=== PATIENT | male | born 1970 | race Caucasian/White ===

== ENCOUNTER 2023-02-17 08:14 | Inpatient (IN) ==
[2023-02-17] MEDS ORDERED: ASPIRIN CHEW 324 MG ONE (08:36)
[2023-02-17] MEDS ORDERED: NITROGLYCERIN SL 0.4 MG/TAB TAB ONE ×3 (08:37→13:08)
[2023-02-17] MEDS ORDERED: NITROGLYCERIN SL 0.4 MG/TAB TAB SL STA (08:39)
[2023-02-17] MEDS ORDERED: ASPIRIN CHEW 324 MG PO STA (08:39)
[2023-02-17] MEDS ORDERED: niCARdipine HCL INJ 2.5 MG/ML 10 ML AMP ONE (08:40)
[2023-02-17] MEDS ORDERED: fentaNYL citrate PF 100 MCG/2 ML VIAL ONE (08:40)
[2023-02-17] MEDS ORDERED: MIDAZOLAM HCL 1 MG/ML 2ML VIAL ONE ×2 (08:40→09:11)
[2023-02-17] MEDS ORDERED: HEPARIN (PORCINE) 1000 UNIT/ML 10 ML (CATH LAB USE ONLY) ONE (08:40)
[2023-02-17] MEDS ORDERED: NITROGLYCERIN/D5W 100MCG/ML 20ML SYR ONE (08:41)
[2023-02-17 08:50] LABS: Basophils # (auto) 0.08 K/uL (0.00-0.20); Basophils % (auto) 0.8 %; Eosinophils # (auto) 0.26 K/uL (0.00-0.50); Eosinophils % (auto) 2.6 %; Hematocrit (blood only) 46.8 % (42.0-52.0); Hemoglobin 15.6 g/dl (14.0-18.0); Immature Granulocytes # (auto) 0.05 K/uL (0.01-0.20); Immature Granulocytes % (auto) 0.5 %; Lymphocytes # (auto) 2.26 K/uL (1.20-3.40); Lymphocytes % (auto) 22.4 %; Mean Corpuscular Hemoglobin 29.7 pg (25.0-34.0); Mean Corpuscular Hgb Conc 33.3 g/dL (32.0-36.0); Mean Corpuscular Volume 89.1 fL (80.0-100.0); Mean Platelet Volume 10.1 fL (9.4-12.4); Monocytes # (auto) 0.95 K/uL (0.11-0.59); Monocytes % (auto) 9.4 %; Neutrophils # (auto) 6.47 K/uL (1.40-6.50); Neutrophils % (auto) 64.3 %; Platelet Count 293 K/uL (130-400); RDW Coefficient of Variation 13.2 % (11.5-14.5); RDW Standard Deviation 43.1 fL (36.4-46.3); Red Blood Count 5.25 M/uL (4.70-6.10); White Blood Count 10.07 K/ul (4.8-10.8)
[2023-02-17] MEDS ORDERED: TICAGRELOR 90 MG TAB ONE (08:52)
--- NOTE | 2023-02-17 08:54 | Emergency Department Note ---
History of Present Illness General Chief complaint: Cardiac Assessment Stated complaint: JAW PAIN,BACK PAIN,SWEATING, Time Seen by Provider: 02/17/23 08:27 History of Present Illness Maximum Pain Intensity: 1 52-year-old male presents emergency department the onset of jaw pain and mid scapular pain that started at 730 this morning. Patient states it was associated with nausea and diaphoresis. Patient denies any substernal chest pressure or arm pain. Patient of note last Thursday went to the dentist because he was having jaw pain. Patient states that he has had intermittent week but it worsened this morning at 7:30 AM. Patient has taken 81 mg of aspirin prior to arrival. Currently rates the pain moderate in the mid scapular region. There are no other mitigating or alleviating factors. Patient denies shortness of breath. Home Medications Medication Instructions Recorded Confirmed Type multivitamin 1 tab PO QAM 02/27/21 06/16/22 History chlorthalidone 25 mg tablet 25 mg PO DAILY 05/13/22 06/16/22 History esomeprazole magnesium 40 mg 40 mg PO DAILY 05/13/22 06/16/22 History capsule,delayed release (Nexium) loratadine 10 mg tablet (Claritin) 10 mg PO DAILY 05/13/22 06/16/22 History olmesartan 40 mg tablet (Benicar) 40 mg PO DAILY 05/13/22 06/16/22 History Allergies Allergy/AdvReac Type Severity Reaction Status Date / Time No Known Allergies Allergy Verified 06/16/22 11:00 Past Med/Surg History Medical History Vitamin D deficiency HTN (hypertension) Migraine Surgical History History of excision of pilonidal cyst x2 History of wisdom tooth extraction Family History Other No family history of adverse response to anesthesia Social History Smoking Status: Never smoker Second Hand Exposure: No; Do You Dip or Chew Tobacco: No; Hx Alcohol Use: No Hx Substance Use: No Preferred Language: Lithuanian Communication Ability: Effective Diesel Maintenance Technician Required: No Beliefs That Will Affect Care: None Current Living Situation: Spouse and Family Feels Safe at Home: Yes Assistive Devices: Glasses Review of Systems A total of 10 systems reviewed and were otherwise negative Cardiovascular: + radiating jaw, neck or arm pain Gastrointestinal: + nausea Physical Exam Vital Signs Vital Signs - 24 hr 02/17/23 08:16 02/17/23 08:16 02/17/23 08:40 Temperature 36.6 C 36.8 C Temperature Source Temporal Artery Scan Oral Pulse Rate 82 Pulse Rate [Apical] Pulse Rate [Right Finger] 79 Pulse Rhythm Pulse Rhythm [Apical] Pulse Rhythm [Right Finger] Regular Pulse Strength [Apical] Pulse Strength [Right Finger] Normal Respiratory Rate 16 12 Respiratory Effort / Characteristics Non-Labored Spontaneous Respiratory Depth Normal Respiratory Pattern Regular Blood Pressure 156/99 H Blood Pressure [Left Arm] Blood Pressure [Right Arm] 159/116 H Blood Pressure Mean 118 Blood Pressure Mean [Left Arm] Blood Pressure Mean [Right Arm] 130 Blood Pressure Position [Left Arm] Blood Pressure Position [Right Arm] Semi-fowlers Pulse Oximetry 98 99 Oxygen Delivery Method Room Air Room Air Sepsis Recent Fever Within 48 Hours No Sepsis New/Unexplained Change in Mental Status N/A Sepsis Action Taken by Nursing No Action Required 02/17/23 08:40 02/17/23 08:42 02/17/23 09:50 Temperature Temperature Source Pulse Rate 71 85 Pulse Rate [Apical] 73 Pulse Rate [Right Finger] Pulse Rhythm Regular Pulse Rhythm [Apical] Regular Pulse Rhythm [Right Finger] Pulse Strength [Apical] Normal Pulse Strength [Right Finger] Respiratory Rate 99 H 16 Respiratory Effort / Characteristics Non-Labored Spontaneous Respiratory Depth Normal Respiratory Pattern Regular Blood Pressure Blood Pressure [Left Arm] 155/103 H Blood Pressure [Right Arm] Blood Pressure Mean Blood Pressure Mean [Left Arm] 120 Blood Pressure Mean [Right Arm] Blood Pressure Position [Left Arm] Sitting Blood Pressure Position [Right Arm] Pulse Oximetry 99 97 Oxygen Delivery Method Room Air Room Air Sepsis Recent Fever Within 48 Hours Sepsis New/Unexplained Change in Mental Status Sepsis Action Taken by Nursing 02/17/23 10:05 Temperature Temperature Source Pulse Rate Pulse Rate [Apical] 63 Pulse Rate [Right Finger] Pulse Rhythm Pulse Rhythm [Apical] Regular Pulse Rhythm [Right Finger] Pulse Strength [Apical] Normal Pulse Strength [Right Finger] Respiratory Rate 16 Respiratory Effort / Characteristics Non-Labored Spontaneous Respiratory Depth Normal Respiratory Pattern Regular Blood Pressure Blood Pressure [Left Arm] 143/91 H Blood Pressure [Right Arm] Blood Pressure Mean Blood Pressure Mean [Left Arm] 108 Blood Pressure Mean [Right Arm] Blood Pressure Position [Left Arm] Sitting Blood Pressure Position [Right Arm] Pulse Oximetry 97 Oxygen Delivery Method Room Air Sepsis Recent Fever Within 48 Hours Sepsis New/Unexplained Change in Mental Status Sepsis Action Taken by Nursing GENERAL: Patient is awake alert in no acute distress patient is resting comfortably and showing no signs of anxiety EYES: The conjunctivae are clear. The pupils are round and reactive. EARS, NOSE, MOUTH AND THROAT: The nose is without any evidence of any deformity. Mucous membranes are moist. Tongue is midline. NECK: The neck is nontender and supple. RESPIRATORY: Normal respiratory effort is noted there is no evidence of wheezing rhonchi or rales CARDIOVASCULAR: Regular rate and rhythm noted there no murmurs rubs or gallops normal S1 normal S2. GASTROINTESTINAL: The abdomen is soft. Abdomen is nontender. BACK: No midline tenderness or or step-off noted range of motion in flexion extension as well as rotation no signs of muscle spasm noted MUSCULOSKELETAL/EXTREMITIES: There is no evidence of gross deformity full range of motion is noted in the hips and shoulders. SKIN: There is no obvious evidence of any rash. There are no petechiae, pallor or cyanosis noted. NEUROLOGIC: Patient is awake alert and oriented x3 strength is symmetric Course Reevaluation(s) Reevaluation #1: Patient was given a full aspirin, 1 sublingual nitro and his pain was 0 Time: 08:45 Consultations Consultation #1: This case was emergently discussed with Dr. Mcmahon at 8:39 AM, a STEMI alert was activated at that time as well Time: 08:39 Consultation #2: The [facility] hospitalist team was notified the patient will be going to the Sales Branch Manager by the outpatient case manager Time: 08:40 Administered Medications Discontinued Medications Aspirin (Aspirin Chew 324 Mg) Confirm Administered Dose 324 mg .ROUTE .STK-MED ONE Stop: 02/17/23 08:37 Last Admin: 02/17/23 08:39 Dose: 243 mg Documented By: AIYANA Fentanyl Citrate (Fentanyl Citrate Pf 100 Mcg/2 Ml Vial) Confirm Administered Dose 100 mcg .ROUTE .STK-MED ONE Stop: 02/17/23 08:41 Last Increment: 02/17/23 09:31 Dose: 75 mcg Documented By: DORINA Heparin Sodium (Porcine) (Heparin (Porcine) 1000 Unit/Ml 10 Ml (Sales Branch Manager Use Only)) Confirm Administered Dose 20,000 units .ROUTE .STK-MED ONE Stop: 02/17/23 08:41 Last Admin: 02/17/23 09:44 Dose: 8,000 units Documented By: DORINA Midazolam HCl (Midazolam Hcl 1 Mg/Ml 2ml Vial) Confirm Administered Dose 2 mg .ROUTE .STK-MED ONE Stop: 02/17/23 08:41 Last Admin: 02/17/23 09:30 Dose: 2 mg Documented By: DORINA Midazolam HCl (Midazolam Hcl 1 Mg/Ml 2ml Vial) Confirm Administered Dose 2 mg .ROUTE .STK-MED ONE Stop: 02/17/23 09:12 Last Increment: 02/17/23 09:31 Dose: 1 mg Documented By: DORINA Nicardipine HCl (Nicardipine Hcl Inj 2.5 Mg/Ml 10 Ml Amp) Confirm Administered Dose 25 mg .ROUTE .STK-MED ONE Stop: 02/17/23 08:41 Last Admin: 02/17/23 09:31 Dose: 0.1 mg Documented By: SACHA Nitroglycerin (Nitroglycerin Sl 0.4 Mg/Tab Tab) Confirm Administered Dose 0.4 mg .ROUTE .STK-MED ONE Stop: 02/17/23 08:38 Last Admin: 02/17/23 08:40 Dose: 0.4 mg Documented By: AIYANA Nitroglycerin/Dextrose (Nitroglycerin/D5w 100mcg/Ml 20ml Syr) Confirm Administered Dose 2,000 mcg .ROUTE .STK-MED ONE Stop: 02/17/23 08:42 Last Admin: 02/17/23 09:31 Dose: 100 mcg Documented By: SACHA Ticagrelor (Ticagrelor 90 Mg Tab) Confirm Administered Dose 180 mg .ROUTE .STK- MED ONE Stop: 02/17/23 08:53 Last Admin: 02/17/23 09:31 Dose: 180 mg Documented By: DORINA Critical Care Time Critical Care Time: Yes Total Critical Care Time: 30 I have personally spent greater than 30 minutes of critical care time in the direct management of this patient. This includes bedside care, interpretation of diagnostic studies, and testing, discussion with consultants, patient, and family members, and other required patient management activities. These minutes are in excess of all separately billable procedures. Medical Decision Making Medical Records Attestation: I reviewed the patient's medical records. Home Medications Current Medication List: was personally reviewed by me Laboratory Data Attestation: I reviewed the patient's lab results. Patient's labs interpreted by me patient has mild hypokalemia and an elevated creatinine 02/17/23 08:41 02/17/23 08:41 Lab Results 02/17/23 02/17/23 02/17/23 Range/Units 08:41 08:45 09:24 WBC 10.07 (4.8-10.8) K/ul RBC 5.25 (4.70-6.10) M/uL Hgb 15.6 (14.0-18.0) g/dl POC Hgb 16.0 (14.0-18.0) g/dl Hct 46.8 (42.0-52.0) % POC Hct 47 (42-52) % MCV 89.1 (80.0-100.0) fL MCH 29.7 (25.0-34.0) pg MCHC 33.3 (32.0-36.0) g/dL RDW Std Deviation 43.1 (36.4-46.3) fL RDW Coeff of Livia 13.2 (11.5-14.5) % Plt Count 293 (130-400) K/uL MPV 10.1 (9.4-12.4) fL Immature Gran % (Auto) 0.5 % Neut % (Auto) 64.3 % Lymph % (Auto) 22.4 % Dewey % (Auto) 9.4 % Eos % (Auto) 2.6 % Baso % (Auto) 0.8 % Neut # (Auto) 6.47 (1.40-6.50) K/uL Lymph # (Auto) 2.26 (1.20-3.40) K/uL Dewey # (Auto) 0.95 H (0.11-0.59) K/uL Eos # (Auto) 0.26 (0.00-0.50) K/uL Baso # (Auto) 0.08 (0.00-0.20) K/uL Immature Gran # (Auto) 0.05 (0.01-0.20) K/uL PT 10.9 (9.0-12.0) Seconds INR 1.0 (0.9-1.1) APTT 27.3 (21.0-31.0) Seconds PTT Ratio 1.0 Activ Coag Time Kaolin 233 H (94-140) SECONDS POC Sodium 141 (135-144) mmol/L Sodium 140 (136-145) mmol/L POC Potassium 3.0 L (3.3-5.0) mmol/L Potassium 3.1 L (3.5-5.1) mmol/L POC Chloride 99 L (101-112) mmol/L Chloride 99 (98-107) mmol/L Carbon Dioxide 35 H (21-32) mmol/L POC Total CO2 29 (24-31) mmol/L Anion Gap 6 (3-11) POC Anion Gap 17.0 (16-25) mmol/L POC BUN 24 H (7-18) mg/dl BUN 24 H (6-23) mg/dl Creatinine 1.61 H (0.6-1.4) mg/dl POC Creatinine 1.7 H (0.6-1.3) mg/dl Est Cr Clr Drug Dosing 64.2 ml/min Est GFR ( Amer) 56.1 ml/min Est GFR (Non-Af Amer) 48.4 ml/min BUN/Creatinine Ratio 14.9 (10-20) Glucose 125 H (70-99(Fasting)) mg/dl POC Glucose (other) 127 H (70-99) mg/dl Calcium 10.1 (8.6-10.3) mg/dl POC Ioniz Calcium Gaston 1.13 (1.12-1.32) mmol/l Total Bilirubin 0.5 (0.2-1.0) mg/dl AST 21 (13-39) U/L ALT 32 (7-52) U/L Alkaline Phosphatase 48 (34-104) U/L Total Protein 7.5 (6.0-8.3) gm/dl Albumin 4.4 (3.4-5.0) gm/dl Globulin 3.1 (2.5-4.0) gm/dl Albumin/Globulin Ratio 1.4 (0.9-2) ECG Data Attestation: I personally reviewed and interpreted this ECG as follows: Additional Comments: EKG interpreted by me is normal sinus rhythm patient has ST segment elevation in leads III and aVF with reciprocal changes in 1 and aVL as well as in V1 and V2 with ST segment depression there is normal axis normal intervals rate 72 Telemetry was ordered by me, interpreted as normal sinus rhythm rate of 73 MDM Narrative Medical decision making differential diagnosis includes angina, unstable angina, acute coronary syndrome, acute OH, musculoskeletal back pain Patient's EKG is concerning for ST segment elevation in leads III and aVF with reciprocal changes in 1 and aVL and V1 and V2 consistent with inferior wall OH Patient was given aspirin, nitro Emergent, patient with cardiology for Sales Branch Manager was initiated Patient had no significant prior records to review I did speak with his father and brought him to bedside as he stated that his son had jaw pain this morning and he had a similar presentation and had an OH in the past Plan is to activate Sales Branch Manager, patient needs emergent cardiac catheterization for STEMI Impression & Plan ST elevation myocardial infarction (STEMI) Discharge Plan Visit Data Chief Complaint: Cardiac Assessment Stated Complaint: JAW PAIN,BACK PAIN,SWEATING, ED Provider: Juancarlos Jung Discharge Problem: ST elevation myocardial infarction (STEMI) Patient Disposition: Admitted As Inpatient Discharge Problem: ST elevation myocardial infarction (STEMI) Qualifiers: Involved coronary artery: right coronary artery Qualified Code(s): I21.11 - ST elevation (STEMI) myocardial infarction involving right coronary artery
[2023-02-17 08:58] LABS: iSTAT Creatinine 1.7 mg/dl (0.6-1.3); iSTAT Ionized Calcium 1.13 mmol/l (1.12-1.32)
--- NOTE | 2023-02-17 09:02 | Pre Anesthesia Assessment ---
Date of Service February 17, 2023 Pre Sedation Assessment Vital Signs Temp Pulse Pulse Resp BP BP Pulse Ox 02/17/23 08:42 85 99 H 99 02/17/23 08:40 71 02/17/23 08:40 36.8 C 79 12 159/116 H 99 02/17/23 08:16 02/17/23 08:16 36.6 C 82 16 156/99 H 98 O2 Del Method 02/17/23 08:42 Room Air 02/17/23 08:40 02/17/23 08:40 Room Air 02/17/23 08:16 Room Air 02/17/23 08:16 Cardiovascular RRR, no murmur, no edema Respiratory normal respiratory effort, lungs clear to auscultation Pre-Sedation Airway Assessment Smoking Status: Never smoker MALLAMPATI 2 ASA 4 Notes The planned sedation has been discussed with the patient. Informed Consent was obtained. I have identified the patient, determined the appropriateness of sedation and have assessed the patient immediately prior to the procedure. All medicine(s) and interventions are by my order.
[2023-02-17 09:05] LABS: Partial Thromboplastin Time 27.3 Seconds (21.0-31.0); Prothrombin Time 10.9 Seconds (9.0-12.0)
[2023-02-17 09:10] LABS: Albumin Globulin Ratio 1.4 (0.9-2); Albumin Level 4.4 gm/dl (3.4-5.0); BUN Creatinine Ratio 14.9 (10-20); Bilirubin,Total 0.5 mg/dl (0.2-1.0); Calcium 10.1 mg/dl (8.6-10.3); Creatinine Clr Calc Pharmacy 64.2 ml/min; Est GFR (African American) 56.1 ml/min; Est GFR (Non-African American) 48.4 ml/min; Globulin 3.1 gm/dl (2.5-4.0); Potassium 3.1 mmol/L (3.5-5.1); Total Protein 7.5 gm/dl (6.0-8.3)
[2023-02-17] MEDS ORDERED: ONDANSETRON INJ 2 MG/ML 2 ML VIAL IV PRN (09:46)
[2023-02-17] MEDS ORDERED: ACETAMINOPHEN 325 MG TAB PO PRN (09:46)
[2023-02-17] MEDS ORDERED: ATROPINE SULFATE 0.1 MG/ML 10ML SYR IV PRN (09:46)
--- NOTE | 2023-02-17 10:26 | Electrocardiogram Report ---
Test Reason : Blood Pressure : / mmHG Vent. Rate : 072 BPM Atrial Rate : 072 BPM P-R Int : 134 ms QRS Dur : 082 ms QT Int : 374 ms P-R-T Axes : 009 -09 079 degrees QTc Int : 409 ms Normal sinus rhythm Acute Inferior infarct Consider right ventricular involvement in acute inferior infarct Abnormal ECG No previous ECGs available Confirmed by Duke Arthur ([id number]) on 02/17/2023 10:25:46 AM Referred By: Confirmed By:Duke Arthur
--- NOTE | 2023-02-17 10:28 | History & Physical Report ---
Date of Service February 17, 2023 Assessment & Plan (1) ST elevation myocardial infarction (STEMI): Plan: Inferior STEMI - Admit EKG while w/ jaw pain --> inferior ST elevations .Repeat post cath EGK --> normalized, pain improved S/p PCI with JACQUES x2 to RCA. Pending staged intervention to LAD - sinus post cath, regular rate DAPT aspirin/Brilinta continued Transferred to ICU for post cath protocol TR band protocol. No bleeding, neurovascularly intact at bedside eval Atorvastatin 40 mg continued Metoprolol tartrate 25 mg twice daily continued - Post cath echo is pending. Troponin trended - Optimize K/Mg. Repletion ordered. BMP 3pm + qAM. - A1C pending, Lipids pending (2) HTN (hypertension): Plan: - MTP as noted - ARB/thiazide pending renal stability - BMP daily (3) GERD (gastroesophageal reflux disease): Plan: - Pepcid twice daily, if ineffective may add Protonix 40 mg daily (4) Stage 3a chronic kidney disease (CKD): Plan: - baseline is ~1.7, Cr 1.61 on admit, at baseline. - CKD suspect 2/2 nephrosclerosis, hx HTN, and prior hx of NSAID use - [place] [facility] - HH diet, - BMP daily (5) Hypokalemia: Plan: - As noted Plan DVT PPx: Heparin SQ Diet: HH CODE: Full Dispo: ICU History of Present Illness Primary Care Provider: Gopal Babcock Joey is a 52-year-old male with past medical history of GERD, hypertension, CKD, who presented to the ER with onset of chest pain, nausea, diaphoresis and was found to have a STEMI on admit. He was taken emergently to the [facility] and now s/p PCI with JACQUES x2 to the RCA. Patient seen postcatheterization Joey reports that for approximately 7 days he has had intermittent bilateral jaw pain which she first noticed when at a dentist appointment a week ago. Reports he does have a habit of grinding his teeth during the day as a nervous habit so did not make much of the jaw pain. He has also had issues with GERD and started taking Protonix 2 days ago for epigastric discomfort. He reports he has had no jaw pain at rest, but has had intermittent recurrence of it with activity that then resolves with rest. He reports that he had an episode that was more severe around 5/10 in intensity and which was associated with pain radiating back into his shoulder blades with associated diaphoresis. While he had not been short of breath previously, had a small amount of shortness of breath with this episode. He denies chest pain/chest pressure. His gave him an 81 mg aspirin and recommended he be seen in the ER. He was found to have inferior ST elevations and was taken emergently to the [facility]. Per signout he had 2 RCA stents placed, and is pending staged PCI for residual disease. He reports a past history of GERD for which he has been on Nexium in the past. Had not taken this in many months, but did take it the last 2 days thinking his symptoms may have been related to GERD. Normally just takes Tums, these have not helped with his pain. He is recommended to use Pepcid first-line for GERD due to his CKD, but may use Protonix 40 mg daily if needed. He reports he was seen by nephrology and follows for CKD,Has previously been as high as 1.7 but has been downtrending on outpatient checks. He reports he has had an outpatient blood check which showed a level of 1.5, lab review shows recent baseline of around 1.61.7. He reports he has had no change in urination, no blood tinged urination, and no dysuria. No dark or reduced urine output. Endorses a family history of GA in his father in late 70s. Denies history of other heart disease in the family. Denies personal and family history of DM 2, hyperlipidemia, thyroid disease. He does not use tobacco products. Denies alcohol use. Denies recreational drug use. Denies history of VTE/PE Medical History: Reviewed Medications: Reviewed. Surgical History: Reviewed Family history: Reviewed Allergies: Reviewed. No medication allergies, but patient should not use NSAIDs due to his history of CKD and worsening renal function in the setting of prior NSAID use Social History: No tobacco/etoh/MM Code Status: Full Allergies Allergy/AdvReac Type Severity Reaction Status Date / Time No Known Allergies Allergy Verified 06/16/22 11:00 Home Medications Medication Instructions Recorded Confirmed Type multivitamin 1 tab PO QAM 02/27/21 06/16/22 History chlorthalidone 25 mg tablet 25 mg PO DAILY 05/13/22 06/16/22 History esomeprazole magnesium 40 mg 40 mg PO DAILY 05/13/22 06/16/22 History capsule,delayed release (Nexium) loratadine 10 mg tablet (Claritin) 10 mg PO DAILY 05/13/22 06/16/22 History olmesartan 40 mg tablet (Benicar) 40 mg PO DAILY 05/13/22 06/16/22 History Past Med/Surg History Medical History Vitamin D deficiency HTN (hypertension) Migraine Surgical History History of excision of pilonidal cyst x2 History of wisdom tooth extraction Family History Other No family history of adverse response to anesthesia Social History Smoking Status: Never smoker Second Hand Exposure: No; Do You Dip or Chew Tobacco: No; Hx Alcohol Use: No Hx Substance Use: No Preferred Language: Indonesian Communication Ability: Effective Etcher Aircraft Required: No Beliefs That Will Affect Care: None Current Living Situation: Spouse and Family Feels Safe at Home: Yes Assistive Devices: Glasses Physical Exam Physical Exam: General: A&Ox3. NAD. Cooperative. HEENT: Atraumatic, normocephalic. Vision/hearing grossly intact Pulm: CTAB A&P. -wheezes, -rales, -rhonchi. Symmetrical chest rise. No increased work of breathing. No respiratory distress. Cardiac: RRR, -mrg. Radial pulses intact and symmetrical. Abdominal: Nontender, nondistended, soft. BS present. Extremities: Right TR band in place. Sensation in fingertips intact, cap refill right second digit less than 2 seconds. Ankle dorsiflexion intact bilaterally, no pitting Results & Data Results & Data Vital Signs (Past 12 Hours) Vital Signs Temp Pulse Pulse Pulse Resp BP BP 02/17/23 10:05 63 16 143/91 H 02/17/23 09:50 73 16 155/103 H 02/17/23 08:42 85 99 H 02/17/23 08:40 71 02/17/23 08:40 36.8 C 79 12 02/17/23 08:16 11/14/23 08:16 36.6 C 82 16 156/99 H BP Pulse Ox O2 Del Method 02/17/23 10:05 97 Room Air 02/17/23 09:50 97 Room Air 02/17/23 08:42 99 Room Air 02/17/23 08:40 02/17/23 08:40 159/116 H 99 Room Air 02/17/23 08:16 Room Air 02/17/23 08:16 98 PG Care Time/CCT Total # of Minutes Spent Total Time Spent with Patient: Total time spent is greater than 50% in coordination of care (as documented) at patient's floor/unit and/or counseling patient: Coding Level of Care Code 29438 INT INP/OBS CARE 3/75MIN Diagnoses ST elevation myocardial infarction (STEMI) I21.11 Involved coronary artery: right coronary artery HTN (hypertension) I10 GERD (gastroesophageal reflux disease) K21.9 Stage 3a chronic kidney disease (CKD) N18.31 Hypokalemia E87.6 (1) ST elevation myocardial infarction (STEMI) Involved coronary artery: right coronary artery Qualified Code(s): I21.11 - ST elevation (STEMI) myocardial infarction involving right coronary artery
--- NOTE | 2023-02-17 10:28 | Electrocardiogram Report ---
Test Reason : Blood Pressure : / mmHG Vent. Rate : 070 BPM Atrial Rate : 070 BPM P-R Int : 138 ms QRS Dur : 082 ms QT Int : 376 ms P-R-T Axes : 036 -12 -28 degrees QTc Int : 406 ms Normal sinus rhythm Normal ECG When compared with ECG of 17-FEB-2023 08:30, ST no longer elevated in Inferior leads ST no longer depressed in Lateral leads Confirmed by Duke Arthur ([id number]) on 02/17/2023 10:28:01 AM Referred By: Confirmed By:Duke Arthur
[2023-02-17] MEDS ORDERED: POTASSIUM CHLORIDE CRTAB 20 MEQ TABCR PO STA (10:37)
--- NOTE | 2023-02-17 11:20 | Post Anesthesia Assessment ---
Date of Service February 17, 2023 Post Sedation Assessment Vital Signs Temp Pulse Pulse Pulse Resp BP BP 02/17/23 10:45 148/93 H 02/17/23 10:45 62 15 02/17/23 10:05 63 16 143/91 H 02/17/23 09:50 73 16 155/103 H 02/17/23 08:42 85 99 H 02/17/23 08:40 71 02/17/23 08:40 36.8 C 79 12 02/17/23 08:16 02/17/23 08:16 36.6 C 82 16 156/99 H BP Pulse Ox O2 Del Method 02/17/23 10:45 02/17/23 10:45 100 Room Air 02/17/23 10:05 97 Room Air 02/17/23 09:50 97 Room Air 02/17/23 08:42 99 Room Air 02/17/23 08:40 02/17/23 08:40 159/116 H 99 Room Air 02/17/23 08:16 Room Air 02/17/23 08:16 98 Recovery Score Activity: Moves 4 extremities Respiration: Deep Breath/Cough Circulation: +/-20% PreAnes Value Consciousness: Fully Awake Oxygen Saturation: > 92% On Room Air Post Anesthesia Score: 10 Discharge Sedation Level of Care: Fast Track Phase II Post Sedation Plan On clinical assessment, the patient appears to have tolerated the sedation without complications. Patient is recovering as anticipated. Patient will continue to be monitored by nursing and may be discharged when sedation discharge criteria are met per below protocol. Upon Completions of procedure up to 15 minutes continue every 5 minute vital signs and the P.A.R. score; then discharge to a Phase I or Fast Track to Phase II per the following guidelines: * Discharge Patient to appropriate Phase II area if PAR is 8 or greater or return to pre- procedure baseline. The post - procedure orders will be as directed. * If PAR score is less than 8 or not return to pre-procedure baseline then patient will follow Phase I monitoring till PAR is reached for Phase II. The Phase I may be done in procedure room or may call to secure a Phase I area. * If naloxone or flumazenil are used for reversal, hold in Phase I for continued monitoring from when last reversal dose was given for a minimum of 60 minutes or longer pending the nurse and/or physician discretion of patient condition before discharge to Phase II. Please call the Sedation Physician to re-evaluate and complete post-note for discharge to Phase II area. Do NOT discharge from procedure sedation or Phase 1 until post- sedation evaluation note is complete by procedure /sedation MD Sedation Discharge Instructions to be given to the patient at discharge to home. [facility] [place] Codes (Charges) Indication for Procedure Indication for procedure: ST elevation [place] Sedation/Anesthesia Procedure 1: Sedation/Anesthesia: 41929 Mod Sedation by the same physician;Init15 Min Child Age 5 & Up (Initial 15 minutes, start time 905) Total Sedation Time (minutes): 38 Procedure 2: Sedation/Anesthesia: 21097 Mod Sedation by the same physician; Ea [id number] Minutes (Additional 23 min, end time 0944) Total Sedation Time (minutes): 38
--- NOTE | 2023-02-17 11:23 | Cardiac Catheterization ---
ACC Data: Builder Beam Cardiac Status Clinical evaluation leading to the procedure CAD Presenation: STEMI Anginal Classification: CCS IV Heart Failure: No Cardiogenic Shock within 24 Hours: No Cardiac Arrest within 24 Hours: No Imaging Studies Past 6 Months: No Stress Studies Past 6 Months: No STEMI OR Non-STEMI Symptom Onset Date: 02/17/23 Symptom Onset Time: 07:30 Thrombolytics: No Coronary Anatomy Dominant: Right Left Main (% Stenosis): Normal LAD (% Stenosis): Proximal (95-99%) and Mid (85%) D1 (% Stenosis): Normal Circumflex (% Stenosis): Normal OM1 (% Stenosis): Normal (Mild diffuse) OM2 (% Stenosis): Normal RCA (% Stenosis): Proximal (90%), Mid (99% with thrombus) and Distal (Focal 50%) R PDA (% Stenosis): Normal R PL1 (% Stenosis): Normal Diagnostic Physicians Name: Wil Mcmahon MD, PhD Closure Device Percutaneous Entry Location: Radial Closure Device: Radial Band Recommendations: Medical Therapy and/or Counseling and PCI without planned CABG PCI Indication: PCI for STEMI - Stable Lesion Segment Name: Proximal and mid RCA Culprit Artery: Yes Stenosis Prior to Rx (%): 99 Chronic Total Occlusion: No Pre-Procedure ADALID Flow: 1 Previously Treated Lesion: No Lesion Complexity: High/C Lesion Length (mm): 25 Thrombus Present: Yes Bifurcation Lesion: No Guidewire Across Lesion: Yes Intraprocedure Events Significant Disection: No Perforation: No Cardiac Cath Procedure Full Procedure Date February 17, 2023 Pre-Procedure Diagnosis Pre-Procedure Diagnosis: STEMI AUC Score AUC Score: 09 Post-Procedure Diagnosis Post-Procedure Diagnosis: Severe CAD and Successful PCI Procedure(s) Performed Procedure(s) Performed: Coronary Angiography, Drug Eluting Stent and Ultrasound Guided Vascular Access Neuropsychiatric Aide Wil Mcmahon MD, PhD Estimated Blood Loss Estimated Blood Loss: 10 mL Medication(s) Medication(s): Fentanyl, Heparin, Lidocaine 1%, Nicardipine, Nitroglycerin and Versed Summary of Findings Brief description: Patient was brought to the cardiac catheterization suite where he was shaved and prepped in a sterile fashion. Sedated using IV Versed and fentanyl. Soft tissues of the right wrist were anesthetized using 2 mils of 1% Xylocaine. Using the ultrasound for guidance, the right radial artery was accessed and a 6 [place] radial artery glide sheath was placed. Patient was provided anticoagulation with IV heparin and antispasmodics including nicardipine and nitroglycerin. All catheters were advanced and exchanged over a 0.035 J-tip wire. Right coronary angiography was performed with a 6 [place] JR4 guide catheter. We moved immediately for PCI. A BMW versa guidewire was advanced through the guide catheter and positioned distally in the RCA. RCA lesions were predilated using a 2.5 x 12 mm trek balloon inflated initially to 8 kiko and then followed by 14 kiko across each lesion. A 4.0 x 28 mm thor point drug-eluting stent was then advanced and positioned across the 2 lesions where it was deployed at 15 kiko. A 4.0 x 12 mm Skypoint drug eluting stent was then positioned in an overlap fashion proximal to the first stent and deployed at 18 kiko. The proximal and overlapped portion of the stents were then postdilated using a 4.5 x 15 mm NC sprinter balloon up to 18 kiko. Balloon was removed and angiography performed. We then proceeded with completion of the diagnostic portion after removal of the guide catheter. Left coronary angiography was performed in orthogonal views with a 5 [place] JL 3.5 diagnostic catheter. After diagnostic catheter was removed, the radial artery sheath was removed. Hemostasis was obtained using the TR band. Patient remained hemodynamically stable and asymptomatic. He was then admitted to the ICU for further work-up and management. This ended the case. Coronary angiography findings: CCF-nffpu-dxrrkwk vessel bifurcating into LAD and circumflex. Mild diffuse disease. LAD-large caliber and transapical. There is ostial to proximal 95 to 99% stenosis. The disease also extends into the mid segment where there is up to 85% stenosis. There is a large septal branch and at the same level a large branching diagonal. The remainder of the LAD and its branches have no more than mild scattered disease. DRm-ddeae-tznccgz and nondominant. Travels in the AV groove where it gives a high arising OM1. This vessel is large in caliber and branches. It becomes tortuous. It has mild diffuse disease. The AV groove vessel then gives an atrial branch before terminating in a medium caliber OM 2. No more than mild luminal irregularities in the remainder of the circumflex and its branches. N[facility]-yakjh-bnixemx and dominant vessel. Somewhat tortuous. Proximal vessel with diffuse disease up to 90% stenosis. The mid segment that has diffuse disease with up to 99% narrowing and there is associated thrombus at this location. The early distal vessel has no significant disease and then there is diffuse mild plaques until just before the bifurcation where there is a focal 50% stenosis. The RCA bifurcates into the PDA and a posterolateral branch which have no more than mild luminal irregularities. There is ADALID I to ADALID II flow at best after the mid RCA lesion. PCI of RCA- 0% residual stenosis post PCI ADALID-3 flow post PCI No evidence of dissection or perforation post PCI Summary: 1. Severe multivessel coronary disease including RCA and LAD. 2. Successful PCI with implantation of 2 overlapped drug-eluting stents in the RCA (culprit). 3. Dual antiplatelet therapy with aspirin 81 mg daily and Brilinta 90 mg p.o. twice daily. 4. Initiate guideline directed medical therapy for secondary prevention including beta-enrrique, high intensity statin therapy, plus or minus ZENY inhibitor/ARB 5. Planned staged PCI of LAD. Hemodynamics Rest Ao:: 87/56 mmHg Final Ao: 122/94 mmHg LV: Not performed Recommendations Recommendations: Medical Therapy and/or Counseling and PCI without planned CABG Radiation Exposure (mGy) 1024 mGy, fluoroscopy time 11.8 minutes Contrast (mls) 150 Anesthesia 3 mg IV Versed, 75 mcg IV fentanyl Procedural Complication(s) None Disposition ICU I attest to the content of the Intraoperative Record and any orders documented therein. Any exceptions are noted below. [facility] Card Cath Procedure Codes Cardiac Catheterization Procedure 1: Cardiovascular Cath Procedures: 89308 Coronaries Therapeutic Services & Ancillary Procedure 1: Cardiovascular Tx and Anc Procedures: 05091 Ultrasonic Guidance Vascular Access Moderate Sedation Procedure 1: Sedation/Anesthesia: 29495 Mod Sedation by the same physician;Init15 Min Child Age 5 & Up (Initial 15 minutes, start time 0906) Procedure 2: Sedation/Anesthesia: 51768 Mod Sedation by the same physician; Ea [id number] Minutes (Additional 23 min, end time 0944) Stenting Procedure 1: Cardiovascular Stent Procedures: 72393 Perc transluminal revascularization of acute sub/total occl, aMI (RCA) PG Care Time/CCT Total # of Minutes Spent Total Time Spent with Patient: Total time spent is greater than 50% in coordination of care (as documented) at patient's floor/unit and/or counseling patient:
[2023-02-17] MEDS ORDERED: FAMOTIDINE 20 MG in SYRINGE 3 ML IV PRN (11:25)
[2023-02-17 11:28] LABS: Basophils # (auto) 0.07 K/uL (0.00-0.20); Basophils % (auto) 0.6 %; Eosinophils # (auto) 0.14 K/uL (0.00-0.50); Eosinophils % (auto) 1.1 %; Hematocrit (blood only) 43.6 % (42.0-52.0); Hemoglobin 14.8 g/dl (14.0-18.0); Immature Granulocytes # (auto) 0.07 K/uL (0.01-0.20); Immature Granulocytes % (auto) 0.6 %; Lymphocytes # (auto) 1.92 K/uL (1.20-3.40); Lymphocytes % (auto) 15.4 %; Mean Corpuscular Hemoglobin 29.5 pg (25.0-34.0); Mean Corpuscular Hgb Conc 33.9 g/dL (32.0-36.0); Mean Corpuscular Volume 86.9 fL (80.0-100.0); Monocytes # (auto) 0.81 K/uL (0.11-0.59); Monocytes % (auto) 6.5 %; Neutrophils # (auto) 9.43 K/uL (1.40-6.50); Neutrophils % (auto) 75.8 %; Platelet Count 269 K/uL (130-400); RDW Coefficient of Variation 13.3 % (11.5-14.5); RDW Standard Deviation 41.5 fL (36.4-46.3); Red Blood Count 5.02 M/uL (4.70-6.10); White Blood Count 12.44 K/ul (4.8-10.8)
[2023-02-17 11:43] LABS: BUN Creatinine Ratio 15.9 (10-20); Calcium 9.7 mg/dl (8.6-10.3); Creatinine Clr Calc Pharmacy 68.5 ml/min; Est GFR (African American) 60.7 ml/min; Est GFR (Non-African American) 52.3 ml/min; Potassium 3.3 mmol/L (3.5-5.1)
[2023-02-17 11:53] LABS: Estimated Average Glucose 146 mg/dl; Hemoglobin A1C 6.7 % (4.5-5.6)
[2023-02-17] MEDS: SODIUM CHLORIDE 0.9% 1,000 ML IV SCH (11:53)
[2023-02-17] MEDS: ATORVASTATIN 40 MG TAB PO SCH (11:54)
[2023-02-17] MEDS: ICU Protocol for HYPERglycemia SCH ×3 (11:56→20:04)
--- NOTE | 2023-02-17 13:11 | Critical Care Consultation ---
Date of Consultation February 17, 2023 Assessment & Plan (1) S/P drug eluting coronary stent placement: (2) ST elevation myocardial infarction (STEMI): (3) Hypokalemia: (4) Stage 3a chronic kidney disease (CKD): (5) GERD (gastroesophageal reflux disease): (6) HTN (hypertension): Plan Reason Critically Ill: 52-year-old male with a significant past medical history of hypertension, CKD 3, and GERD who presented to the emergency department with complaints of back, jaw, neck pain. Patient found to have an acute ST elevation myocardial infarction. He underwent PTCI with JACQUES x2 to the RCA with planning for staged PCI of the LAD in the near future. NEURO - * CAM ICU: NEGATIVE CARDIAC/VASCULAR - * Acute STEMI status post PTCI with JACQUES x2 to the RCA: * Trend troponins. * A.m. lipid panel. * ASCVD Rx per typical. * Echocardiogram pending. * Plan for staged PCI of the LAD in the near future. * Chest discomfort: * Patient complaining of 2/10 upper chest discomfort. Pain not responsive to 2 separate sublingual nitroglycerin and Maalox. * EKG without ST changes. * Defer to cardiology for continued management. * Monitor on telemetry. RESPIRATORY - * No history of pulmonary disease. * Saturating well on room air. GI/NUTRITION - * GERD: * Restart PPI * Prophylaxis: Protonix RENAL/LYTES - * Hypokalemia: * Agree with replacement in the setting of recent coronary intervention. Would advocate for potassium greater than 4 and magnesium greater than 2 in a patient at risk for dysrhythmia. * History of CKD 3: * Avoid nephrotoxic agents. - * No concerns at this time. ENDO - * Elevated A1c * BSGs per unit protocol. ISS --> gtt per unit policy. HEME - * Stable H&H ID - * No concerns LINES/IV ACCESS - * PIVs x2 DVT PROPHYLAXIS - * Hold on chemoprophylaxis in the setting of recent Heparin antiplatelet Rx. Defer to cardiology. * SCDs I have personally spent 40 minutes of critical care time in the direct management of this patient. This is a life/limb threatening event. This includes time spent evaluating patient, direct bedside care, chart review, placing orders , interpretation of diagnostic studies, discussion with consultants, patient, and family members, as well as other required patient management activities. This time is exclusive of all separately billable procedures, and teaching time and separate from and in addition to any other critical care service time. Thank you for allowing us to participate in the care of this patient. Please refer to my attending physician's documentation for any further recommendations. History of Present Illness Reason for Consultation: post PCI STEMI Requesting Physician: Dr. Sutherland Attending Physician: Matt Sutherland MD History of Present Illness Patient is a 52-year-old male with a significant past medical history of obesity, hypertension, CKD 3, and GERD who presented to the emergency department with complaints of LEFT-sided jaw pain and back pain. Patient was found to have an acute ST elevation myocardial infarction. Heart alert was called and the patient was taken emergently to the catheterization suite where he underwent PTCI with JACQUES x2 to the RCA. Patient was also noted to have significant disease to the LAD with planning for staged PCI to the LAD in the near future. Patient reports resolve of jaw pain after intervention. He had been feeling well, however complaining of some upper back pain which waxes and wanes. Additionally, he is complaining of some 2/10 upper chest discomfort. Patient reports that he has been treated himself with PPI most recently with complaints of similar GERD symptoms. Of note, the patient has a significant family history of a father with recent stenting of the heart as well as 2 maternal uncles with prior stenting and MIs as well. Otherwise, the patient reports no history of tobacco abuse. He does not drink alcohol. No illicit drug use. He offers no other complaints otherwise. Allergies Allergy/AdvReac Type Severity Reaction Status Date / Time No Known Allergies Allergy Verified 06/16/22 11:00 Home Medications Medication Instructions Recorded Confirmed Type multivitamin 1 tab PO QAM 02/27/21 06/16/22 History chlorthalidone 25 mg tablet 25 mg PO DAILY 05/13/22 06/16/22 History esomeprazole magnesium 40 mg 40 mg PO DAILY 05/13/22 06/16/22 History capsule,delayed release (Nexium) loratadine 10 mg tablet (Claritin) 10 mg PO DAILY 05/13/22 06/16/22 History olmesartan 40 mg tablet (Benicar) 40 mg PO DAILY 05/13/22 06/16/22 History Patient History Medical History Vitamin D deficiency HTN (hypertension) Migraine Surgical History History of excision of pilonidal cyst x2 History of wisdom tooth extraction Family History Other No family history of adverse response to anesthesia Social History Smoking Status: Never smoker Second Hand Exposure: No; Do You Dip or Chew Tobacco: No; Hx Alcohol Use: No Hx Substance Use: No Preferred Language: [place] Communication Ability: Effective Strategic Marketing Leader Required: No Beliefs That Will Affect Care: None Current Living Situation: Spouse Feels Safe at Home: Yes Assistive Devices: None Review of Systems Review of Systems: A complete 10 point review of systems was reviewed with the patient with pertine nt positives and negatives as per history of present illness. All else were negative. Physical Exam Physical Exam: VITAL SIGNS - Vital signs and nursing notes were reviewed. GENERAL - 52-year-old male appearing his stated age who is in no acute distress. Communicates well with provider and answers questions appropriately. HEAD - NC/AT. EYES - PERRL with EOMI bilaterally. EARS - No deformities of external structures noted on gross examination bilaterally. NOSE - Midline and without cyanosis. MOUTH/OROPHARYNX - Without perioral cyanosis. NECK - Neck with FROM. LUNGS - Chest wall symmetric without accessory muscle use, intercostals retractions, or central cyanosis. Normal vesicular breath sounds CTA B/L. No wheezes, rales, or rhonchi appreciated. CARDIAC - RRR with S1/S2. No murmur, rubs, or gallops appreciated. No reproducible tenderness to palpation appreciated over the anterior chest wall. ABDOMEN - Abdominal contour obese without pulsations or visible masses. BS normoactive all four quadrants. No tenderness, palpable masses, hepatosplenomegaly, or ascites noted. EXTREMITIES - No clubbing or peripheral cyanosis. No pretibial edema present. +3/5 radial and dorsalis pedis pulses palpated throughout. +5/5 strength noted in UE/LE bilaterally. NEUROLOGIC - Cranial nerves II through XII grossly intact. Sensory intact to light touch throughout. PSYCH - A&Ox3 and cooperates fully with examiner. Pt is very pleasant and interacts well with examiner. Results & Data Results & Data Vital Signs (Past 12 Hours) Vital Signs Temp Pulse Pulse Pulse Resp BP BP 02/17/23 11:30 125/90 02/17/23 11:30 70 12 02/17/23 11:17 36.4 C L 62 16 148/93 H 02/17/23 11:15 135/93 02/17/23 11:15 70 10 L 02/17/23 11:00 68 13 02/17/23 11:00 142/91 H 02/17/23 10:45 148/93 H 02/17/23 10:45 62 15 02/17/23 10:05 63 16 143/91 H 02/17/23 09:50 73 16 155/103 H 02/17/23 08:42 85 99 H 02/17/23 08:40 71 02/17/23 08:40 36.8 C 79 12 02/17/23 08:16 02/17/23 08:16 36.6 C 82 16 156/99 H BP Pulse Ox O2 Del Method 02/17/23 11:30 02/17/23 11:30 100 02/17/23 11:17 98 Room Air 02/17/23 11:15 02/17/23 11:15 99 02/17/23 11:00 99 02/17/23 11:00 02/17/23 10:45 02/17/23 10:45 100 Room Air 02/17/23 10:05 97 Room Air 02/17/23 09:50 97 Room Air 02/17/23 08:42 99 Room Air 02/17/23 08:40 02/17/23 08:40 159/116 H 99 Room Air 02/17/23 08:16 Room Air 02/17/23 08:16 98 Coding Level of Care Code 49135 CRITICAL CARE 1ST 30-74M Diagnoses S/P drug eluting coronary stent placement Z95.5 ST elevation myocardial infarction (STEMI) I21.11 Involved coronary artery: right coronary artery Hypokalemia E87.6 Stage 3a chronic kidney disease (CKD) N18.31 GERD (gastroesophageal reflux disease) K21.9 HTN (hypertension) I10 (2) ST elevation myocardial infarction (STEMI) Involved coronary artery: right coronary artery Qualified Code(s): I21.11 - ST elevation (STEMI) myocardial infarction involving right coronary artery
[2023-02-17] MEDS ORDERED: ALUMINUM/MAGNESIUM SUSP 30 ML UDC PO STA (13:13)
[2023-02-17] MEDS ORDERED: ALUMINUM/MAGNESIUM SUSP 30 ML UDC ONE (13:16)
[2023-02-17 14:41] LABS: Troponin I High Sensitivity 57.7 pg/ml (0-20)
--- NOTE | 2023-02-17 17:09 | XCELERA ---
[id number] [id number]
--- NOTE | 2023-02-17 18:30 | Cardiology Consultation ---
Date of Consultation February 17, 2023 Assessment & Plan (1) ST elevation myocardial infarction (STEMI): Severe multivessel coronary disease status post PCI of the RCA. Significant residual disease in the LAD. Plan for PCI of the LAD if his renal function remains stable. He will remain on dual antiplatelet therapy with aspirin 81 mg daily and Brilinta 90 mg p.o. twice daily. Guideline directed medical therapy for secondary prevention of coronary disease to include; high intensity statin therapy, beta-enrrique, plus or minus ZENY inhibitor/ARB as tolerated. (2) HTN (hypertension): We will stop chlorthalidone. Agree with olmesartan given his diabetes (based on hemoglobin A1c), and he has started on metoprolol tartrate. Tartrate for target heart rate and blood pressure. (3) Atherogenic dyslipidemia: Patient is high risk. High intensity statin therapy initiated with a atorvastatin 40 mg daily. Target LDL reduction will be greater than or equal to 50% of untreated baseline LDL. We are awaiting his lipid panel in the morning. (4) Diabetes mellitus type 2 with complications: This is based on his hemoglobin A1c being 6.7. Primary team to work-up and manage. It seems that he is had complications including renal insufficiency and coronary atherosclerosis. (5) Stage 3a chronic kidney disease (CKD): Patient will be receiving gentle IV fluid resuscitation to minimize nephrotoxic effect of IVP contrast. As long as he remains stable then he would be appropriate for staged PCI of the LAD. Anticipate this will be on . History of Present Illness Reason for Consultation: Abnormal EKG, jaw, neck, and back pain Attending Physician: Matt Sutherland MD History of Present Illness Is a pleasant 52-year-old gentleman with a history of hypertension and chronic kidney disease presented to the emergency department for complaints of severe jaw and neck pain and associated upper back pain. Patient states that he been having symptoms on and off over the past 7 days but this morning the symptoms were quite severe. In the emergency department his EKG suggested acute inferior ST elevation AL. I was called to see him for this reason. On my arrival his symptoms had essentially resolved. He reported no chest pain with the back pain. I obtained full informed consent and we then proceeded with cardiac catheterization. This revealed severe multivessel coronary disease. The culprit for this presentation was the right coronary artery which underwent implantation of 2 overlapped drug-eluting stent. This resulted in resolution of his ST elevations and he never had any more chest discomfort. He has sub sequently been admitted to the intensive care unit with plan for staged PCI of the LAD in the near future likely prior to his discharge. Patient denied any preceding anginal type chest pain, shortness of breath, syncope, near syncope, orthopnea, PND, racing heartbeat, palpitations, or edema. He has a family history of coronary disease with his father having had a "minor heart attack" and a stent placed. Review of the patient's records show reduced GFR in the past. However, no history of diabetes or dyslipidemia. Allergies Allergy/AdvReac Type Severity Reaction Status Date / Time No Known Allergies Allergy Verified 06/16/22 11:00 Home Medications Medication Instructions Recorded Confirmed Type multivitamin 1 tab PO QAM 02/27/21 06/16/22 History chlorthalidone 25 mg tablet 25 mg PO DAILY 05/13/22 06/16/22 History esomeprazole magnesium 40 mg 40 mg PO DAILY 05/13/22 06/16/22 History capsule,delayed release (Nexium) loratadine 10 mg tablet (Claritin) 10 mg PO DAILY 05/13/22 06/16/22 History olmesartan 40 mg tablet (Benicar) 40 mg PO DAILY 05/13/22 06/16/22 History Patient History Medical History Vitamin D deficiency HTN (hypertension) Migraine Surgical History History of excision of pilonidal cyst x2 History of wisdom tooth extraction Family History Other No family history of adverse response to anesthesia Social History Smoking Status: Never smoker Second Hand Exposure: No; Do You Dip or Chew Tobacco: No; Hx Alcohol Use: No Hx Substance Use: No Preferred Language: Belarusian Communication Ability: Effective Casing Splitter Required: No Beliefs That Will Affect Care: None Current Living Situation: Spouse Feels Safe at Home: Yes Assistive Devices: None Review of Systems Review of Systems: Negative except as per HPI Physical Exam Constitutional: WD/WN, vitals as above (Obese, no acute distress) Eyes: Extraocular muscles intact. Sclera are anicteric. ENMT: Oral mucosa is pink moist and intact Neck: No JVD or bruits Respiratory: Clear to auscultation bilaterally. No wheezing, rhonchi, or rales. Cardiovascular: Regular rate and rhythm. S4 gallop. Do not appreciate any rubs or murmurs. No edema. 2+ distal pulses. Musculoskeletal: no cyanosis or clubbing, extremities motor strength 5/5 Neurologic: Cognition is intact. Speech is fluent. No focal deficits. No tremor. Psychiatric: A+Ox3, euthymic affect Results & Data Vital Signs (Past 12 Hours) Vital Signs Temp Pulse Pulse Pulse Resp BP BP 02/17/23 11:30 125/90 02/17/23 11:30 70 12 02/17/23 11:17 36.4 C L 62 16 148/93 H 02/17/23 11:15 135/93 02/17/23 11:15 70 10 L 02/17/23 11:00 68 13 02/17/23 11:00 142/91 H 02/17/23 10:45 148/93 H 02/17/23 10:45 62 15 02/17/23 10:05 63 16 143/91 H 02/17/23 09:50 73 16 155/103 H 02/17/23 08:42 85 99 H 02/17/23 08:40 71 02/17/23 08:40 36.8 C 79 12 02/17/23 08:16 02/17/23 08:16 36.6 C 82 16 156/99 H BP Pulse Ox O2 Del Method 02/17/23 11:30 02/17/23 11:30 100 02/17/23 11:17 98 Room Air 02/17/23 11:15 02/17/23 11:15 99 02/17/23 11:00 99 02/17/23 11:00 02/17/23 10:45 02/17/23 10:45 100 Room Air 02/17/23 10:05 97 Room Air 02/17/23 09:50 97 Room Air 02/17/23 08:42 99 Room Air 02/17/23 08:40 02/17/23 08:40 159/116 H 99 Room Air 11/14/23 08:16 Room Air 02/17/23 08:16 98 PG Care Time/CCT Total # of Minutes Spent Total Time Spent with Patient: Total time spent is greater than 50% in coordination of care (as documented) at patient's floor/unit and/or counseling patient: Critical Care Time: Yes A total of 65 minutes critical care time was spent in the initial examination, evaluation of the patient, review of his records, discussion with the patient, discussion with the care team, formulation and implementation of a plan of care, and all associated documentation. This time is exclusive of the time spent for the procedure. Coding Level of Care Code 85771 CRITICAL CARE 1ST 30-74M Diagnoses ST elevation myocardial infarction (STEMI) I21.11 Involved coronary artery: right coronary artery HTN (hypertension) I10 Atherogenic dyslipidemia E78.5 Diabetes mellitus type 2 with complications E11.8 Stage 3a chronic kidney disease (CKD) N18.31 Additional Codes Critical Care Time - Critical Care Time: Yes ([id number]) Time Spent (min) 65 (1) ST elevation myocardial infarction (STEMI) Involved coronary artery: right coronary artery Qualified Code(s): I21.11 - ST elevation (STEMI) myocardial infarction involving right coronary artery
[2023-02-17] MEDS: METOPROLOL TARTRATE 25 MG TAB PO SCH (20:03)
[2023-02-17] MEDS: TICAGRELOR 90 MG TAB PO SCH (20:03)
[2023-02-18] MEDS: SODIUM CHLORIDE 0.9% 1,000 ML IV SCH ×2 (05:01→22:39)
[2023-02-18 05:20] LABS: BUN Creatinine Ratio 16.4 (10-20); Chol HDL Ratio 4.4 (0-5); Est GFR (African American) 60.2 ml/min; Est GFR (Non-African American) 51.9 ml/min; Magnesium 1.9 mg/dl (1.7-2.4); Potassium 3.3 mmol/L (3.5-5.1)
[2023-02-18] MEDS: METOPROLOL TARTRATE 25 MG TAB PO SCH ×2 (08:00→20:08)
[2023-02-18] MEDS: ASPIRIN 81 MG ECTAB PO SCH (08:00)
[2023-02-18] MEDS: ATORVASTATIN 40 MG TAB PO SCH (08:00)
[2023-02-18] MEDS ORDERED: POTASSIUM CHLORIDE CRTAB 20 MEQ TABCR PO STA (08:42)
--- NOTE | 2023-02-18 08:42 | Hospitalist Progress Note ---
Date of Service February 18, 2023 Assessment & Plan (1) ST elevation myocardial infarction (STEMI): Plan: 52 y/o with CKD presented back/neck/jaw pain found to have inferior STEMI underwent PCI with JACQUES x 2 to RCA on 02/17 Found to have severe multivessel CAD, planned for PCI to LAD on 02/19 pending stability TTE 02/17 reviewed - low normal LVEF 50-55%, small area inferobasal hypokinesis, mild conc LVH, grade 1 diastolic dysfunction, normal RV function with mild dilation, no sig valvular disease [place] [id number] overnight, now trending down -continue DAPT with ASA brilinta - discussed importance of not stopping these with patient and his -continue high intensity statin - lipid panel reviewed LDL 110, HDL 38, TG 105 -continue metoprolol, resume ARB for discharge, currently held (2) S/P drug eluting coronary stent placement: (3) Hypokalemia: Plan: K remains 3.3, replace po Check Mag = normal (4) Diabetes mellitus type 2 with complications: Plan: A1c 6.7 -diabetic diet -PRN short acting insulin in hospital goal BG 120-180 -he prefers to address lifestyle and diet first and not start meds yet, first line would be metformin, follow up with PCP -diabetes education consult - completed 02/18, appreciate (5) Stage 3a chronic kidney disease (CKD): Plan: Likely related to chronic hypertension, metabolic syndrome -Cr at baseline 1.5 today, monitor post PCI -AM BMP (6) GERD (gastroesophageal reflux disease): Plan: cont PPI (7) HTN (hypertension): Plan: home meds held: chlorthalidone, olmesartan metoprolol currently plan to resume ARB Plan HOMERO: 02/20, dispo: home DVT ppx: on DAPT, low risk for DVT, ambulation/SCDs Admission and Anticipated Discharge Date Admission Date: February 17, 2023 Subjective feeling really well. in room. no dyspnea, no further chest pain or jaw pain. R hand without pain swelling numbness Physical Exam 2 Physical Exam: PHYSICAL EXAMINATION Last 24h vital signs reviewed, see documentation in flowsheet General: comfortable appearing, no distress HEENT: Normocephalic, atraumatic, pupils round and equal, sclerae anicteric, no conjunctival injection, moist mucus membranes Lungs: Normal respiratory effort. Clear to auscultation bilaterally. No RRW Heart: Regular rate and rhythm, no murmurs. No JVD Abdomen: Soft, nontender, nondistended. Bowel sounds present. Extremities: Warm, dry, well-perfused. No extremity edema. R wrist access site without swelling or hematoma Neuro: Alert and oriented x 4, face symmetric, moves 4 extremities well Psych: Normal affect and behavior Results & Data Results & Data Vital Signs (Past 12 Hours) Vital Signs Temp Pulse Resp BP Pulse Ox 02/18/23 07:00 53 L 12 94 02/18/23 06:00 66 11 L 111/72 94 02/18/23 05:00 68 13 96 02/18/23 04:00 36.6 C 02/18/23 04:00 72 16 94 02/18/23 03:00 108/77 02/18/23 03:00 69 13 95 02/18/23 02:00 74 10 L 94 02/18/23 02:00 118/79 02/18/23 01:00 70 10 L 94 02/18/23 01:00 115/84 02/18/23 00:00 36.6 C 02/18/23 00:00 75 02/18/23 00:00 126/87 02/18/23 00:00 70 10 L 94 02/17/23 23:09 70 14 127/80 95 02/17/23 22:03 130/89 02/17/23 22:03 73 18 95 02/17/23 22:01 74 12 94 02/17/23 22:01 175/119 H 02/17/23 22:00 71 13 93 02/17/23 21:00 76 15 92 02/17/23 21:00 127/93 Diagnostic Findings 02/17/23 11:04 02/18/23 04:45 PG Care Time/CCT Total # of Minutes Spent Total Time Spent with Patient: Total time spent is greater than 50% in coordination of care (as documented) at patient's floor/unit and/or counseling patient: Coding Level of Care Code 85026 SUB INP/OBS CARE 3/50MIN Diagnoses ST elevation myocardial infarction (STEMI) I21.11 Involved coronary artery: right coronary artery S/P drug eluting coronary stent placement Z95.5 Hypokalemia E87.6 Diabetes mellitus type 2 with complications E11.8 Stage 3a chronic kidney disease (CKD) N18.31 GERD (gastroesophageal reflux disease) K21.9 HTN (hypertension) I10 (1) ST elevation myocardial infarction (STEMI) Involved coronary artery: right coronary artery Qualified Code(s): I21.11 - ST elevation (STEMI) myocardial infarction involving right coronary artery
[2023-02-18] MEDS: TICAGRELOR 90 MG TAB PO SCH ×2 (09:20→20:08)
[2023-02-18 10:08] LABS: Basophils # (auto) 0.05 K/uL (0.00-0.20); Basophils % (auto) 0.5 %; Eosinophils % (auto) 0.9 %; Hematocrit (blood only) 44.9 % (42.0-52.0); Immature Granulocytes # (auto) 0.04 K/uL (0.01-0.20); Immature Granulocytes % (auto) 0.4 %; Lymphocytes % (auto) 14.6 %; Mean Corpuscular Hemoglobin 29.3 pg (25.0-34.0); Mean Corpuscular Hgb Conc 33.4 g/dL (32.0-36.0); Mean Corpuscular Volume 87.7 fL (80.0-100.0); Monocytes # (auto) 0.99 K/uL (0.11-0.59); Neutrophils # (auto) 8.17 K/uL (1.40-6.50); Neutrophils % (auto) 74.6 %; Platelet Count 261 K/uL (130-400); RDW Coefficient of Variation 13.4 % (11.5-14.5); RDW Standard Deviation 42.8 fL (36.4-46.3); Red Blood Count 5.12 M/uL (4.70-6.10); White Blood Count 10.95 K/ul (4.8-10.8)
--- NOTE | 2023-02-18 11:37 | Critical Care Progress Note ---
Date of Service February 18, 2023 Assessment & Plan (1) S/P drug eluting coronary stent placement: (2) ST elevation myocardial infarction (STEMI): (3) Hypokalemia: (4) Stage 3a chronic kidney disease (CKD): (5) GERD (gastroesophageal reflux disease): (6) HTN (hypertension): Plan Reason Critically Ill: 52-year-old male with a significant past medical history of hypertension, CKD 3, and GERD who presented to the emergency department with complaints of back, jaw, neck pain. Patient found to have an acute ST elevation myocardial infarction. He underwent PTCI with JACQUES x2 to the RCA with planning for staged PCI of the LAD in the near future. NEURO - * CAM ICU: NEGATIVE CARDIAC/VASCULAR - * Acute STEMI status post PTCI with JACQUES x2 to the RCA: * Troponins have peaked. * ASCVD Rx per typical. * Echocardiogram - EF 50-55% with small area of inferobasal hypokinesis. * Plan for staged PCI of the LAD in the near future. * Chest discomfort: * Resolved * Defer to cardiology for continued management. * Monitor on telemetry. RESPIRATORY - * No history of pulmonary disease. * Saturating well on room air. GI/NUTRITION - * GERD: * Restart PPI * Prophylaxis: Protonix RENAL/LYTES - * Hypokalemia: * Agree with replacement in the setting of recent coronary intervention. Would advocate for potassium greater than 4 and magnesium greater than 2 in a patient at risk for dysrhythmia. * History of CKD 3: * Avoid nephrotoxic agents. - * No concerns at this time. ENDO - * Elevated A1c * BSGs per unit protocol. ISS --> gtt per unit policy. HEME - * Stable H&H ID - * No concerns LINES/IV ACCESS - * PIVs x2 DVT PROPHYLAXIS - * Hold on chemoprophylaxis in the setting of recent Heparin antiplatelet Rx. Defer to cardiology. * SCDs I have personally spent 32 minutes of critical care time in the direct management of this patient. This is a life/limb threatening event. This includes time spent evaluating patient, direct bedside care, chart review, placing orders, interpretation of diagnostic studies, discussion with consultants, patient, and family members, as well as other required patient management activities. This time is exclusive of all separately billable procedures, and teaching time and separate from and in addition to any other critical care service time. Thank you for allowing us to participate in the care of this patient. Patient is stable for downgrade from the ICU at this time. Admission and Anticipated Discharge Date Admission Date: February 17, 2023 Subjective Patient seen and evaluated bedside. He reports resolved chest discomfort. He is eating his breakfast without complaints at this time. Review of Systems Review of Systems: A complete 10 point review of systems was reviewed with the patient with pertinent positives and negatives as per history of present illness. All else were negative. Physical Exam Physical Exam: VITAL SIGNS - Vital signs and nursing notes were reviewed. GENERAL - 52-year-old male appearing his stated age who is in no acute distress. Communicates well with provider and answers questions appropriately. LUNGS - Chest wall symmetric without accessory muscle use, intercostals retractions, or central cyanosis. Normal vesicular breath sounds CTA B/L. No wheezes, rales, or rhonchi appreciated. CARDIAC - RRR with S1/S2. No murmur, rubs, or gallops appreciated. No reproducible tenderness to palpation appreciated over the anterior chest wall. PSYCH - A&Ox3 and cooperates fully with examiner. Pt is very pleasant and interacts well with examiner. Results & Data Results & Data Vital Signs (Past 12 Hours) Vital Signs Temp Pulse Resp BP Pulse Ox O2 Del Method 02/18/23 09:00 122/87 02/18/23 09:00 75 94 Room Air 02/18/23 08:00 116/80 02/18/23 08:00 77 14 95 Room Air 02/18/23 08:00 64 02/18/23 07:40 125/85 02/18/23 07:06 111/72 02/18/23 07:06 76 16 96 Room Air 02/18/23 07:00 53 L 12 94 02/18/23 06:00 66 11 L 111/72 94 02/18/23 05:00 68 13 96 02/18/23 04:00 36.6 C 02/18/23 04:00 72 16 94 02/18/23 03:00 108/77 02/18/23 03:00 69 13 95 02/18/23 02:00 74 10 L 94 02/18/23 02:00 118/79 02/18/23 01:00 70 10 L 94 02/18/23 01:00 115/84 02/18/23 00:00 36.6 C 02/18/23 00:00 75 02/18/23 00:00 126/87 02/18/23 00:00 70 10 L 94 Coding Level of Care Code 68948 CRITICAL CARE 1ST 30-74M Diagnoses S/P drug eluting coronary stent placement Z95.5 ST elevation myocardial infarction (STEMI) I21.11 Involved coronary artery: right coronary artery Hypokalemia E87.6 Stage 3a chronic kidney disease (CKD) N18.31 GERD (gastroesophageal reflux disease) K21.9 HTN (hypertension) I10 (2) ST elevation myocardial infarction (STEMI) Involved coronary artery: right coronary artery Qualified Code(s): I21.11 - ST elevation (STEMI) myocardial infarction involving right coronary artery
[2023-02-18] MEDS ORDERED: FAMOTIDINE 20 MG TAB PO PRN (14:00)
--- NOTE | 2023-02-18 16:58 | Cardiology Progress Note ---
Date of Service February 18, 2023 Assessment & Plan (1) ST elevation myocardial infarction (STEMI): Plan: Severe residual disease in the LAD. He will undergo PCI of the LAD tomorrow and assuming there is no complications he will likely be ready for discharge after completion of bedrest post PCI. His heart rate and blood pressure are at target on current medical regimen. Continue dual antiplatelet therapy with aspirin 81 mg daily and Brilinta 90 mg p.o. twice daily. Continue high intensity statin therapy, angiotensin receptor enrrique, and beta-enrrique. (2) Atherogenic dyslipidemia: Plan: Patient is high risk. Baseline untreated LDL was 110 mg/dL. This makes his aggressive LDL reduction target (per guidelines) 55 mg/dL. Continue atorvastatin 40 mg daily. (3) HTN (hypertension): Plan: Blood pressure is well controlled at this time. Continue metoprolol tartrate 25 mg p.o. twice daily and olmesartan 40 mg daily. (4) Stage 3a chronic kidney disease (CKD): Plan: His GFR is unmoved from yesterday. Contrast-induced nephropathy can occur withi n 48 hours. We will recheck his creatinine and estimate his GFR tomorrow. As long as stable we will proceed with catheterization. We will also restart normal saline at 100 mL/h to complete 1 additional liter of resuscitation. Plan Staged PCI tomorrow. Likely discharge afterwards. Follow-up in the cardiology office within 3 weeks of discharge. Outpatient CARDIAC REHAB is recommended. Admission and Anticipated Discharge Date Admission Date: February 17, 2023 Subjective Patient seen in the ICU. No events overnight. No recurrence of chest discomfort and overall states that he feels very well. He is tolerating his medications without side effects. He voices no other complaints or concerns at this time. At this time, we plan for staged PCI to occur tomorrow morning as long as his GFR remains stable. Review of Systems Review of Systems: Negative except as per HPI Physical Exam Constitutional: WD/WN, vitals as above (Obese, no acute distress) Eyes: Extraocular muscles intact. Sclera are anicteric. ENMT: Oral mucosa is pink moist and intact Neck: No JVD or bruits Respiratory: Clear to auscultation bilaterally. No wheezing, rhonchi, or rales. Cardiovascular: Regular rate and rhythm. S4 gallop. Do not appreciate any rubs or murmurs. No edema. 2+ distal pulses. Musculoskeletal: no cyanosis or clubbing, extremities motor strength 5/5 (R radial access intact. Good distal perfusion) Neurologic: Cognition is intact. Speech is fluent. No focal deficits. No tremor. Psychiatric: A+Ox3, euthymic affect Results & Data Vital Signs (Past 12 Hours) Vital Signs Pulse Resp BP Pulse Ox O2 Del Method 02/18/23 16:00 80 02/18/23 12:00 122/81 02/18/23 12:00 74 12 97 Room Air 02/18/23 11:00 131/91 02/18/23 11:00 75 18 95 Room Air 02/18/23 10:00 71 96 Room Air 02/18/23 10:00 110/67 02/18/23 09:00 122/87 02/18/23 09:00 75 94 Room Air 02/18/23 08:00 116/80 02/18/23 08:00 77 14 95 Room Air 02/18/23 08:00 64 02/18/23 07:40 125/85 02/18/23 07:06 111/72 02/18/23 07:06 76 16 96 Room Air 02/18/23 07:00 53 L 12 94 02/18/23 06:00 66 11 L 111/72 94 02/18/23 05:00 68 13 96 PG Care Time/CCT Total # of Minutes Spent Total Time Spent with Patient: Total time spent is greater than 50% in coordination of care (as documented) at patient's floor/unit and/or counseling patient: Coding Level of Care Code 59589 SUB INP/OBS CARE 2/35MIN Diagnoses ST elevation myocardial infarction (STEMI) I21.11 Involved coronary artery: right coronary artery Atherogenic dyslipidemia E78.5 HTN (hypertension) I10 Stage 3a chronic kidney disease (CKD) N18.31 (1) ST elevation myocardial infarction (STEMI) Involved coronary artery: right coronary artery Qualified Code(s): I21.11 - ST elevation (STEMI) myocardial infarction involving right coronary artery
[2023-02-18] MEDS: ICU Protocol for HYPERglycemia SCH ×3 (19:53→20:08)
[2023-02-19 05:00] LABS: BUN Creatinine Ratio 19.1 (10-20); Calcium 9.2 mg/dl (8.6-10.3); Creatinine Clr Calc Pharmacy 68.2 ml/min; Est GFR (African American) 60.2 ml/min; Est GFR (Non-African American) 51.9 ml/min; Potassium 3.7 mmol/L (3.5-5.1)
[2023-02-19] MEDS ORDERED: niCARdipine HCL INJ 2.5 MG/ML 10 ML AMP ONE ×2 (07:01→08:29)
[2023-02-19] MEDS ORDERED: HEPARIN (PORCINE) 1000 UNIT/ML 10 ML (CATH LAB USE ONLY) ONE ×2 (07:01→08:29)
[2023-02-19] MEDS ORDERED: MIDAZOLAM HCL 1 MG/ML 2ML VIAL ONE ×2 (07:01→08:29)
[2023-02-19] MEDS ORDERED: NITROGLYCERIN/D5W 100MCG/ML 20ML SYR ONE (07:02)
[2023-02-19] MEDS ORDERED: ASPIRIN 81 MG CHEW ONE (07:49)
[2023-02-19] MEDS: ASPIRIN 81 MG ECTAB PO SCH (07:53)
[2023-02-19] MEDS: TICAGRELOR 90 MG TAB PO SCH (07:53)
--- NOTE | 2023-02-19 08:24 | Pre Anesthesia Assessment ---
Date of Service February 19, 2023 Pre Sedation Assessment Vital Signs Temp Pulse Pulse Resp BP BP Pulse Ox 02/19/23 07:44 36.6 C 84 18 129/88 97 02/19/23 06:00 114/83 02/19/23 06:00 72 12 95 02/19/23 05:00 105/55 L 02/19/23 05:00 71 13 95 02/19/23 04:00 36.5 C 02/19/23 04:00 130/88 02/19/23 04:00 67 10 L 91 02/19/23 03:00 129/71 02/19/23 03:00 61 10 L 96 02/19/23 02:00 112/56 L 02/19/23 02:00 64 12 93 02/19/23 01:00 129/77 02/19/23 01:00 72 10 L 94 02/19/23 00:00 36.5 C 02/19/23 00:00 129/73 02/19/23 00:00 77 10 L 95 02/19/23 00:00 78 02/18/23 23:00 137/93 02/18/23 23:00 76 10 L 96 02/18/23 22:00 117/87 02/18/23 22:00 72 16 96 02/18/23 21:00 126/80 02/18/23 21:00 79 17 95 02/18/23 20:16 36.5 C 02/18/23 20:00 139/86 02/18/23 20:00 82 20 95 02/18/23 19:00 83 14 94 02/18/23 19:00 134/83 02/18/23 17:00 82 19 96 02/18/23 17:00 130/83 02/18/23 16:00 81 17 96 02/18/23 16:00 80 02/18/23 15:00 125/88 02/18/23 15:00 72 14 95 02/18/23 14:00 126/81 02/18/23 14:00 67 11 L 96 02/18/23 13:00 133/90 02/18/23 13:00 74 15 97 02/18/23 12:00 122/81 02/18/23 12:00 74 12 97 02/18/23 11:00 131/91 02/18/23 11:00 75 18 95 11/15/23 10:00 71 96 02/18/23 10:00 110/67 02/18/23 09:00 122/87 02/18/23 09:00 75 94 O2 Del Method 02/19/23 07:44 Room Air 02/19/23 06:00 02/19/23 06:00 02/19/23 05:00 02/19/23 05:00 02/19/23 04:00 02/19/23 04:00 02/19/23 04:00 02/19/23 03:00 02/19/23 03:00 02/19/23 02:00 02/19/23 02:00 02/19/23 01:00 02/19/23 01:00 02/19/23 00:00 02/19/23 00:00 02/19/23 00:00 02/19/23 00:00 02/18/23 23:00 02/18/23 23:00 02/18/23 22:00 02/18/23 22:00 02/18/23 21:00 02/18/23 21:00 02/18/23 20:16 02/18/23 20:00 02/18/23 20:00 02/18/23 19:00 02/18/23 19:00 02/18/23 17:00 Room Air 02/18/23 17:00 02/18/23 16:00 Room Air 02/18/23 16:00 02/18/23 15:00 02/18/23 15:00 Room Air 02/18/23 14:00 02/18/23 14:00 Room Air 02/18/23 13:00 02/18/23 13:00 Room Air 02/18/23 12:00 02/18/23 12:00 Room Air 02/18/23 11:00 02/18/23 11:00 Room Air 02/18/23 10:00 Room Air 02/18/23 10:00 02/18/23 09:00 02/18/23 09:00 Room Air Cardiovascular RRR, no murmur, no edema Respiratory normal respiratory effort, lungs clear to auscultation Pre-Sedation Airway Assessment Smoking Status: Never smoker Hx Sleep Apnea: Yes Short, Thick Neck: Yes Thyromental Distance: > or= 3.5 Finger Breadths Oral Cavity: + Chipped Teeth Mallampati Class: II ASA: ASA3 NPO Status Date of Last Intake of Fluids: 02/18/23 Time of Last Intake of Fluids: 16:30 Date of Last Intake of Solid Food: 02/18/23 Time of Last Intake of Solid Foods: 16:30 Notes The planned sedation has been discussed with the patient. Informed Consent was obtained. I have identified the patient, determined the appropriateness of sedation and have assessed the patient immediately prior to the procedure. All medicine(s) and interventions are by my order.
[2023-02-19] MEDS ORDERED: fentaNYL citrate PF 100 MCG/2 ML VIAL ONE (08:30)
[2023-02-19] MEDS: fentaNYL citrate PF 100 MCG/2 ML VIAL ONE ×2 (09:10→09:15)
--- NOTE | 2023-02-19 09:22 | Post Anesthesia Assessment ---
Date of Service February 19, 2023 Post Sedation Assessment Vital Signs Temp Pulse Pulse Resp BP BP Pulse Ox 02/19/23 07:44 36.6 C 84 18 129/88 97 02/19/23 06:00 114/83 02/19/23 06:00 72 12 95 02/19/23 05:00 105/55 L 02/19/23 05:00 71 13 95 02/19/23 04:00 36.5 C 02/19/23 04:00 130/88 02/19/23 04:00 67 10 L 91 02/19/23 03:00 129/71 02/19/23 03:00 61 10 L 96 02/19/23 02:00 112/56 L 02/19/23 02:00 64 12 93 02/19/23 01:00 129/77 02/19/23 01:00 72 10 L 94 02/19/23 00:00 36.5 C 02/19/23 00:00 129/73 02/19/23 00:00 77 10 L 95 02/19/23 00:00 78 02/18/23 23:00 137/93 02/18/23 23:00 76 10 L 96 02/18/23 22:00 117/87 02/18/23 22:00 72 16 96 02/18/23 21:00 126/80 02/18/23 21:00 79 17 95 02/18/23 20:16 36.5 C 02/18/23 20:00 139/86 02/18/23 20:00 82 20 95 02/18/23 19:00 83 14 94 02/18/23 19:00 134/83 02/18/23 17:00 82 19 96 02/18/23 17:00 130/83 02/18/23 16:00 81 17 96 02/18/23 16:00 80 02/18/23 15:00 125/88 02/18/23 15:00 72 14 95 02/18/23 14:00 126/81 02/18/23 14:00 67 11 L 96 02/18/23 13:00 133/90 02/18/23 13:00 74 15 97 02/18/23 12:00 122/81 02/18/23 12:00 74 12 97 02/18/23 11:00 131/91 02/18/23 11:00 75 18 95 11/15/23 10:00 71 96 02/18/23 10:00 110/67 O2 Del Method 02/19/23 07:44 Room Air 02/19/23 06:00 02/19/23 06:00 02/19/23 05:00 02/19/23 05:00 02/19/23 04:00 02/19/23 04:00 02/19/23 04:00 02/19/23 03:00 02/19/23 03:00 02/19/23 02:00 02/19/23 02:00 02/19/23 01:00 02/19/23 01:00 02/19/23 00:00 02/19/23 00:00 02/19/23 00:00 02/19/23 00:00 02/18/23 23:00 02/18/23 23:00 02/18/23 22:00 02/18/23 22:00 02/18/23 21:00 02/18/23 21:00 02/18/23 20:16 02/18/23 20:00 02/18/23 20:00 02/18/23 19:00 02/18/23 19:00 02/18/23 17:00 Room Air 02/18/23 17:00 02/18/23 16:00 Room Air 02/18/23 16:00 02/18/23 15:00 02/18/23 15:00 Room Air 02/18/23 14:00 02/18/23 14:00 Room Air 02/18/23 13:00 02/18/23 13:00 Room Air 02/18/23 12:00 02/18/23 12:00 Room Air 02/18/23 11:00 02/18/23 11:00 Room Air 02/18/23 10:00 Room Air 02/18/23 10:00 Recovery Score Activity: Moves 4 extremities Respiration: Deep Breath/Cough Circulation: +/-20% PreAnes Value Consciousness: Fully Awake Oxygen Saturation: > 92% On Room Air Post Anesthesia Score: 10 Discharge Sedation Level of Care: Fast Track Phase II Post Sedation Plan On clinical assessment, the patient appears to have tolerated the sedation without complications. Patient is recovering as anticipated. Patient will continue to be monitored by nursing and may be discharged when sedation discharge criteria are met per below protocol. Upon Completions of procedure up to 15 minutes continue every 5 minute vital signs and the P.A.R. score; then discharge to a Phase I or Fast Track to Phase II per the following guidelines: * Discharge Patient to appropriate Phase II area if PAR is 8 or greater or return to pre- procedure baseline. The post - procedure orders will be as directed. * If PAR score is less than 8 or not return to pre-procedure baseline then patient will follow Phase I monitoring till PAR is reached for Phase II. The Phase I may be done in procedure room or may call to secure a Phase I area. * If naloxone or flumazenil are used for reversal, hold in Phase I for continued monitoring from when last reversal dose was given for a minimum of 60 minutes or longer pending the nurse and/or physician discretion of patient condition before discharge to Phase II. Please call the Sedation Physician to re-evaluate and complete post-note for discharge to Phase II area. Do NOT discharge from procedure sedation or Phase 1 until post- sedation evaluation note is complete by procedure /sedation MD Sedation Discharge Instructions to be given to the patient at discharge to home. [facility] Procedure Codes (Charges) Indication for Procedure Indication for procedure: STAGED PCI FOR SEVERE CAD Sedation/Anesthesia Procedure 1: Sedation/Anesthesia: 91950 Mod Sedation by the same physician;Init15 Min Child Age 5 & Up (Initial 15 minutes, start time 0839) Total Sedation Time (minutes): 34 Procedure 2: Sedation/Anesthesia: 90160 Mod Sedation by the same physician; Ea [id number] Minutes (Additional 19 min, end time 0913) Total Sedation Time (minutes): 34
--- NOTE | 2023-02-19 09:36 | Cardiac Catheterization ---
[facility] Data: Director Of Instructional Technology Cardiac Status Clinical evaluation leading to the procedure CAD Presenation: Stable angina Anginal Classification: CCS III Heart Failure: No Cardiogenic Shock within 24 Hours: No Cardiac Arrest within 24 Hours: No Imaging Studies Past 6 Months: Yes Coronary Anatomy Dominant: Right Left Main (% Stenosis): Normal LAD (% Stenosis): Proximal (95 to 99%) and Mid (85+ percent) D1 (% Stenosis): Normal Circumflex (% Stenosis): Normal OM1 (% Stenosis): Normal OM2 (% Stenosis): Normal Diagnostic Physicians Name: Wil Mcmahon MD, PhD Closure Device Percutaneous Entry Location: Femoral Closure Device: Angio-Seal Recommendations: Medical Therapy and/or Counseling and PCI without planned CABG PCI Indication: Staged PCI Lesion Segment Name: Proximal and mid LAD Culprit Artery: Yes Stenosis Prior to Rx (%): 95 to 99% Chronic Total Occlusion: No Pre-Procedure ADALID Flow: 2 Previously Treated Lesion: No Lesion Complexity: High/C Lesion Length (mm): 30 Thrombus Present: No Bifurcation Lesion: Yes Guidewire Across Lesion: Yes Intraprocedure Events Significant Disection: No Perforation: No Cardiac Cath Procedure Full Procedure Date February 19, 2023 Pre-Procedure Diagnosis Pre-Procedure Diagnosis: CAD AUC Score AUC Score: 09 Post-Procedure Diagnosis Post-Procedure Diagnosis: Severe CAD and Successful PCI Procedure(s) Performed Procedure(s) Performed: Coronary Angiography, Drug Eluting Stent and Ultrasound Guided Vascular Access Postdoctoral Fellow Wil Mcmahon MD, PhD Estimated Blood Loss Estimated Blood Loss: 10 mL Medication(s) Medication(s): Fentanyl, Heparin, Lidocaine 1%, Nicardipine, Nitroglycerin and Versed Summary of Findings Brief description: Patient was brought to the cardiac catheterization suite where he was shaved and prepped in a sterile fashion. Soft tissues of the right groin were anesthetized using 10 mils of 1% Xylocaine. Using the ultrasound for guidance (image saved), the right femoral artery was accessed and a 6 Romanian femoral artery sheath was placed. All catheters were advanced and exchanged over a 0.035 J-tip wire. Patient was provided anticoagulation with IV heparin. ACT was checked intermitt ently and additional heparin provided as needed to maintain therapeutic anticoagulation. Coronary angiography was performed with a 6 Romanian EBU 3.75 guide catheter. A BMW reversal guidewire was advanced into the LAD and then positioned distally in the large first diagonal. A second BMW versa guidewire was advanced down the LAD and positioned distally in the LAD. The LAD lesion was then predilated using a 2.5 x 15 mm trek balloon inflated multiple times up to 14 kiko. Furnace Keeper angiography performed and the BMW guidewire in the diagonal was removed. A 3.0 x 38 mm Clifton drug-eluting stent was then advanced and positioned to cover the entire diseased segment of the proximal and mid LAD. This was initially deployed at 12 kiko followed by a second inflation up to 15 kiko. The stent delivery system was removed. 3.0 x 9 mm NC sprinter balloon was then used to post dilate the proximal to midportion of the stent. 18 kiko proximal, 15 kiko mid. Balloon and guidewire were then removed. Final angiographic evaluation was performed. Guide catheter was removed. Limited right femoral artery angiography was performed to evaluate for closure. Findings were favorable, therefore, the femoral artery sheath was exchanged for a 6 Romanian Angio-Seal closure device. This was deployed in the recommended fashion. We obtained immediate hemostasis and the patient remained hemodynamically stable. He was then returned to the recovery area. This ended the case. PCI findings: There is 0% residual stenosis in the proximal and mid LAD post PCI ADALID-3 flow post PCI No evidence of dissection or perforation post PCI The large septal branch is "jailed" with normal flow. Summary: 1. Successful PCI of the LAD with implantation of a long drug-eluting stent. 2. Patient will remain on dual antiplatelet therapy with aspirin 81 mg daily and Brilinta 90 mg p.o. twice daily to complete 1 year therapy. 3. Patient will continue with guideline directed medical therapy for secondary prevention of coronary disease. Hemodynamics Rest Ao:: 136/93 mmHg Final Ao: 133/89 mmHg LV: Not performed Recommendations Recommendations: Medical Therapy and/or Counseling and PCI without planned CABG Radiation Exposure (mGy) 1876 mGy, fluoroscopy time 8.1 minutes Contrast (mls) 130 mL Anesthesia 2 mg IV Versed, 75 mcg IV fentanyl (start time 0839, end time 0913) Procedural Complication(s) None Disposition Recovery Room\\PACU I attest to the content of the Intraoperative Record and any orders documented therein. Any exceptions are noted below. [facility] Card Cath Procedure Codes Therapeutic Services & Ancillary Procedure 1: Cardiovascular Tx and Anc Procedures: 94575 Ultrasonic Guidance Vascular Access Moderate Sedation Procedure 1: Sedation/Anesthesia: 19781 Mod Sedation by the same physician;Init15 Min Child Age 5 & Up (Initial 15 minutes, start time 0839) Procedure 2: Sedation/Anesthesia: 16229 Mod Sedation by the same physician; Ea [id number] Minutes (Additional 19 min, end time 0913) Stenting Procedure 1: Cardiovascular Stent Procedures: 95996 Perc transcatheter placement of intracoronary stent(s), with ang (LAD) PG Care Time/CCT Total # of Minutes Spent Total Time Spent with Patient: Total time spent is greater than 50% in coordination of care (as documented) at patient's floor/unit and/or counseling patient:
[2023-02-19] MEDS: ICU Protocol for HYPERglycemia SCH (10:12)
[2023-02-19] MEDS: SODIUM CHLORIDE 0.9% 1,000 ML IV SCH (10:13)
[2023-02-19] MEDS: METOPROLOL TARTRATE 25 MG TAB PO SCH (10:14)
[2023-02-19] MEDS: ATORVASTATIN 40 MG TAB PO SCH (10:14)
[2023-02-19 10:30] LABS: Basophils # (auto) 0.07 K/uL (0.00-0.20); Basophils % (auto) 0.7 %; Eosinophils % (auto) 1.9 %; Hematocrit (blood only) 41.7 % (42.0-52.0); Hemoglobin 14.1 g/dl (14.0-18.0); Immature Granulocytes # (auto) 0.06 K/uL (0.01-0.20); Immature Granulocytes % (auto) 0.6 %; Lymphocytes # (auto) 1.71 K/uL (1.20-3.40); Lymphocytes % (auto) 16.6 %; Mean Corpuscular Hemoglobin 29.6 pg (25.0-34.0); Mean Corpuscular Hgb Conc 33.8 g/dL (32.0-36.0); Mean Corpuscular Volume 87.6 fL (80.0-100.0); Mean Platelet Volume 10.3 fL (9.4-12.4); Monocytes # (auto) 0.93 K/uL (0.11-0.59); Neutrophils # (auto) 7.32 K/uL (1.40-6.50); Neutrophils % (auto) 71.2 %; Platelet Count 271 K/uL (130-400); RDW Coefficient of Variation 13.8 % (11.5-14.5); RDW Standard Deviation 43.9 fL (36.4-46.3); Red Blood Count 4.76 M/uL (4.70-6.10); White Blood Count 10.29 K/ul (4.8-10.8)
[2023-02-19] MEDS ORDERED: IODIXANOL (VISIPAQUE) 320 MG/ML 100ML IV ONE (12:13)
[2023-02-19] MEDS ORDERED: Nursing to Pharmacy Communication SCH (14:45)
[2023-02-19] MEDS ORDERED: TICAGRELOR 90 MG HOME PACK PO STA (15:20)
--- NOTE | 2023-02-19 15:26 | Electrocardiogram Report ---
Test Reason : Blood Pressure : / mmHG Vent. Rate : 077 BPM Atrial Rate : 077 BPM P-R Int : 136 ms QRS Dur : 076 ms QT Int : 406 ms P-R-T Axes : 039 -21 -61 degrees QTc Int : 459 ms Poor data quality, interpretation may be adversely affected Normal sinus rhythm Old Inferior infarct (cited on or before 17-FEB-2023) Abnormal ECG When compared with ECG of 17-FEB-2023 12:41, T wave inversion more evident in Inferior leads T wave inversion now evident in Lateral leads Confirmed by Duke Arthur ([id number]) on 02/19/2023 3:26:14 PM Referred By: REFERRED SELF Confirmed By:Duke Arthur
--- NOTE | 2023-02-19 18:23 | Discharge Summary ---
Date of Service February 19, 2023 Admission HPI Per Admitting Provider Joey is a 52-year-old male with past medical history of GERD, hypertension, CKD, who presented to the ER with onset of chest pain, nausea, diaphoresis and was found to have a STEMI on admit. He was taken emergently to the [facility] and now s/p PCI with JACQUES x2 to the RCA. Patient seen postcatheterization Joey reports that for approximately 7 days he has had intermittent bilateral jaw pain which she first noticed when at a dentist appointment a week ago. Reports he does have a habit of grinding his teeth during the day as a nervous habit so did not make much of the jaw pain. He has also had issues with GERD and started taking Protonix 2 days ago for epigastric discomfort. He reports he has had no jaw pain at rest, but has had intermittent recurrence of it with activity that then resolves with rest. He reports that he had an episode that was more severe around 5/10 in intensity and which was associated with pain radiating back into his shoulder blades with associated diaphoresis. While he had not been short of breath previously, had a small amount of shortness of breath with this episode. He denies chest pain/chest pressure. His gave him an 81 mg aspirin and recommended he be seen in the ER. He was found to have inferior ST elevations and was taken emergently to the [facility]. Per signout he had 2 RCA stents placed, and is pending staged PCI for residual disease. He reports a past history of GERD for which he has been on Nexium in the past. Had not taken this in many months, but did take it the last 2 days thinking his symptoms may have been related to GERD. Normally just takes Tums, these have not helped with his pain. He is recommended to use Pepcid first-line for GERD due to his CKD, but may use Protonix 40 mg daily if needed. He reports he was seen by nephrology and follows for CKD,Has previously been as high as 1.7 but has been downtrending on outpatient checks. He reports he has had an outpatient blood check which showed a level of 1.5, lab review shows recent baseline of around 1.61.7. He reports he has had no change in urination, no blood tinged urination, and no dysuria. No dark or reduced urine output. Endorses a family history of VA in his father in late 70s. Denies history of other heart disease in the family. Denies personal and family history of DM 2, hyperlipidemia, thyroid disease. He does not use tobacco products. Denies alco hol use. Denies recreational drug use. Denies history of VTE/PE Principal Diagnosis Inferior STEMI, multivessel CAD, new diagnosis DM type 2 Discharge Exam PHYSICAL EXAMINATION Last 24h vital signs reviewed, see documentation in flowsheet General: comfortable appearing, no distress HEENT: Normocephalic, atraumatic, pupils round and equal, sclerae anicteric, no conjunctival injection, moist mucus membranes Lungs: Normal respiratory effort. Clear to auscultation bilaterally. No RRW Heart: Regular rate and rhythm, no murmurs. No JVD Abdomen: Soft, nontender, nondistended. Bowel sounds present. Extremities: Warm, dry, well-perfused. No extremity edema. R groin access site without swelling or hematoma Neuro: Alert and oriented x 4, face symmetric, moves 4 extremities well Psych: Normal affect and behavior Discharge Data Allergies Allergy/AdvReac Type Severity Reaction Status Date / Time No Known Allergies Allergy Verified 06/16/22 11:00 Consultations 02/17/23 09:12 ED Decision to Admit Stat 02/17/23 10:36 Consult Millwright Apprentice Routine 02/17/23 11:55 Consult Cardiology Routine Procedures Performed Operation Date: 02/19/23 08:00 Actual Procedures p Cineradiography w/Routine Exam - Wil Mcmahon MD, PhD p Drug Eluting Stent SGl Vessel - Wil Mcmahon MD, PhD s Ultrasound Vascular Access - Wil Mcmahon MD, PhD Ordered Studies 02/17/23 08:40 CL Cath Imgs for PACS use only Stat CL Cath Imgs for PACS use only Stat 02/19/23 06:52 CL Cath Imgs for PACS use only Stat 02/19/23 08:16 CL Cath Imgs for PACS use only Stat 02/19/23 02/19/23 02/19/23 Range/Units 12:04 10:05 09:02 WBC 10.29 (4.8-10.8) K/ul RBC 4.76 (4.70-6.10) M/uL Hgb 14.1 (14.0-18.0) g/dl Hct 41.7 L (42.0-52.0) % MCV 87.6 (80.0-100.0) fL MCH 29.6 (25.0-34.0) pg MCHC 33.8 (32.0-36.0) g/dL RDW Std Deviation 43.9 (36.4-46.3) fL RDW Coeff of Livia 13.8 (11.5-14.5) % Plt Count 271 (130-400) K/uL MPV 10.3 (9.4-12.4) fL Immature Gran % (Auto) 0.6 % Neut % (Auto) 71.2 % Lymph % (Auto) 16.6 % Haralson % (Auto) 9.0 % Eos % (Auto) 1.9 % Baso % (Auto) 0.7 % Neut # (Auto) 7.32 H (1.40-6.50) K/uL Lymph # (Auto) 1.71 (1.20-3.40) K/uL Haralson # (Auto) 0.93 H (0.11-0.59) K/uL Eos # (Auto) 0.20 (0.00-0.50) K/uL Baso # (Auto) 0.07 (0.00-0.20) K/uL Immature Gran # (Auto) 0.06 (0.01-0.20) K/uL Activ Coag Time Kaolin 269 H (94-140) SECONDS Sodium (136-145) mmol/L Potassium (3.5-5.1) mmol/L Chloride (98-107) mmol/L Carbon Dioxide (21-32) mmol/L Anion Gap (3-11) BUN (6-23) mg/dl Creatinine (0.6-1.4) mg/dl Est Cr Clr Drug Dosing ml/min Est GFR ( Amer) ml/min Est GFR (Non-Af Amer) ml/min BUN/Creatinine Ratio (10-20) Glucose (70-99(Fasting)) mg/dl POC Glucose 98 (70-99) mg/dl Calcium (8.6-10.3) mg/dl 02/19/23 02/18/23 Range/Units 04:14 20:13 WBC (4.8-10.8) K/ul RBC (4.70-6.10) M/uL Hgb (14.0-18.0) g/dl Hct (42.0-52.0) % MCV (80.0-100.0) fL MCH (25.0-34.0) pg MCHC (32.0-36.0) g/dL RDW Std Deviation (36.4-46.3) fL RDW Coeff of Livia (11.5-14.5) % Plt Count (130-400) K/uL MPV (9.4-12.4) fL Immature Gran % (Auto) % Neut % (Auto) % Lymph % (Auto) % Haralson % (Auto) % Eos % (Auto) % Baso % (Auto) % Neut # (Auto) (1.40-6.50) K/uL Lymph # (Auto) (1.20-3.40) K/uL Haralson # (Auto) (0.11-0.59) K/uL Eos # (Auto) (0.00-0.50) K/uL Baso # (Auto) (0.00-0.20) K/uL Immature Gran # (Auto) (0.01-0.20) K/uL Activ Coag Time Kaolin (94-140) SECONDS Sodium 141 (136-145) mmol/L Potassium 3.7 (3.5-5.1) mmol/L Chloride 108 H (98-107) mmol/L Carbon Dioxide 26 (21-32) mmol/L Anion Gap 7 (3-11) BUN 29 H (6-23) mg/dl Creatinine 1.52 H (0.6-1.4) mg/dl Est Cr Clr Drug Dosing 68.2 ml/min Est GFR ( Amer) 60.2 ml/min Est GFR (Non-Af Amer) 51.9 ml/min BUN/Creatinine Ratio 19.1 (10-20) Glucose 105 H (70-99(Fasting)) mg/dl POC Glucose 113 H (70-99) mg/dl Calcium 9.2 (8.6-10.3) mg/dl Diabetes Follow up Diabetes Follow-up Needed for Newly Diagnosed Diabetes Hospital Course (1) ST elevation myocardial infarction (STEMI): 52 y/o with CKD presented back/neck/jaw pain found to have inferior STEMI underwent PCI with JACQUES x 2 to RCA on 02/17 with resolution of chest and jaw pain. Found to have severe multivessel CAD, underwent PCI with JACQUES to LAD on 02/19. Mild postprocedural central chest pain improving. TTE 02/17 reviewed - low normal LVEF 50-55%, small area inferobasal hypokinesis, mild conc LVH, grade 1 diastolic dysfunction, normal RV function with mild dilation, no sig [place] disease [place] [address], now trending down -continue DAPT with ASA brilinta - discussed importance of not stopping these with patient and his . retail pharmacy will have in stock tomorrow so home pack given by inpatient pharmacy -continue high intensity statin - lipid panel reviewed LDL 110, HDL 38, TG 105. Atorvastatin 40 mg started, goal LDL 55 for 50% reduction -continue metoprolol, resume ARB for discharge -discussed with Dr. Mcmahon, follow up with him in clinic (2) S/P drug eluting coronary stent placement: (3) Hypokalemia: mild, replaced po Check Mag = normal (4) Diabetes mellitus type 2 with complications: A1c 6.7 -diabetic diet -BG remained <180 in hospital -he prefers to address lifestyle and diet first and not start meds yet, first line would be metformin, follow up with PCP -diabetes education consult - completed 02/18, appreciate -discussed dietary changes with him and his (5) Stage 3a chronic kidney disease (CKD): Likely related to chronic hypertension, metabolic syndrome -Cr at baseline 1.5 (6) GERD (gastroesophageal reflux disease): cont PPI (7) HTN (hypertension): home meds: chlorthalidone, olmesartan chlorthalidone stopped, replaced by metoprolol, continue olmesartan Total Time Total Time Spent Total Time Spent (In Minutes): 35 minutes coordinating care for discharge Discharge Plan Discharge Items Patient Disposition: Home - Self-Care Reason For Visit: STEMI S/P RCA Discharge Diagnosis: INFERIOR STEMI severe MV CAD s/p PCI atherogenic dyslipidemia HTN DM Activity: Per Instructions section Non-emergency contact: Care Team Coordinator Scheduler Call non-emergency contact if: you have any medication questions, your symptoms worsen, your pain is not controlled, you have a fever, your wound has increased redness and your wound has increased drainage Follow-up/Referrals: Wil Mcmahon MD, PhD [Physician] - Gopal Babcock [Primary Care Provider] - 03/03/23 11:30 am Diet: Carb Consistent or DM2 and Heart Healthy Add Attending Provider Instructions: ACTIVITY RECOMMENDATIONS: It is common to feel weak and fatigue for a few days. * Do not drive or operate any motorized equipment for the next three days. * Limit stair usage (2 or 3 trips a day only) for the next three days. * Do not lift anything heavier than 10 pounds for the next three days. * Do not engage in vigorous exercise or any sports for the next five days. * You may shower the day after your procedure, but do not immerse the area for three days. Cleanse the site gently with soap and water. SPECIAL CARE INSTRUCTIONS: * You may replace the pressure dressing or band-aid the morning after the procedure. * After your procedure, it is normal to have a small bruise or small lump at the site. Examine your site daily for any change in the bruise or lump, redness, swelling, drainage or numbness. Notify your doctor if any change. BLEEDING: * If there is a small amount of bleeding at the site, lie down and apply firm pressure with a clean cloth for ten minutes. When the bleeding stops, lie quietly keeping the procedure limb straight for six hours. Notify your doctor as soon as possible. * If the bleeding does not stop after ten minutes or if there is a large amount of bleeding or spurting, call 911 immediately. Continue to lie down and hold firm pressure until help arrives. SKIN IRRITATION: * You may experience some redness and/or swelling in the area where radiation was administered. If any skin irritation occurs, please contact your family physician. FOLLOW UP VISIT: Keep any scheduled doctor appointments. Addtl Head Pastry Chef Provider Instructions: Dear Iasmar Demarcus, You had a heart attack (VA) that was treated with two stents placed in your right coronary artery. There was also blockage in your LAD artery that was treated with a stent. -it is critical to take aspirin and brilinta together for a year to keep your stents open -do not stop the aspirin or brilinta unless directed to by a physician. Typically this would only be in an emergency situation and with consultation by a high lift operator -seek medical attention if you develop an unusual rash, abnormal bleeding, or black/tarry or bloody stool -make an appointment to see Dr. Lisandro or his PA/SEARCH DEVELOPER in about 2 weeks You have mild diabetes. It can probably be controlled with diet and eventually exercise, once you've recovered from the heart attack -avoiding sugar especially in beverages and reducing carbohydrates will help -follow up with your primary care doctor Pending Studies at Discharge: No Stand-Alone Forms: My [facility] The App3, Smoking Cessation Medications and DC Order Prescriptions: New atorvastatin 40 mg Tablet 40 mg PO QAM Qty: 30 11RF aspirin 81 mg Tablet,Delayed Release (Dr/Ec) 81 mg PO QAM Qty: 30 11RF metoprolol tartrate 25 mg Tablet 25 mg PO BID Qty: 60 11RF Brilinta 90 mg Tablet 90 mg PO BID Qty: 60 11RF Continued esomeprazole magnesium [Nexium] 40 mg capsule,delayed release(DR/EC) 40 mg PO DAILY olmesartan [Benicar] 40 mg tablet 40 mg PO DAILY loratadine [Claritin] 10 mg tablet 10 mg PO DAILY multivitamin Tablet 1 tab PO QAM Discontinued chlorthalidone 25 mg tablet 25 mg PO DAILY Discharge Orders: Discharge Order (Routine); Ordered 02/19/23 Ordered By: Margaret Guy/Other Patient Handouts: Coronary Angioplasty Stenting Dc, Diabetes Control Without Meds Admission Data Admit Date/Time: 02/17/23 10:08 Attending Provider: Margaret Choi Admit Provider: Matt Sutherland Primary Care Provider: Gopal Babcock Other Providers: Ad Garcia; Gudelia Armstrong; Wil Mcmahon Other Interventions: Discharge Summary Assessment (RN) Last Done: 02/19/23 15:14 Coding Level of Care Code 86692 INP/OBS DISCH >[address] elevation myocardial infarction (STEMI) I21.11 Involved coronary artery: right coronary artery S/P drug eluting coronary stent placement Z95.5 Hypokalemia E87.6 Diabetes mellitus type 2 with complications E11.8 Stage 3a chronic kidney disease (CKD) N18.31 GERD (gastroesophageal reflux disease) K21.9 HTN (hypertension) I10
--- NOTE | 2023-02-20 16:15 | Electrocardiogram Report ---
Test Reason : Blood Pressure : / mmHG Vent. Rate : 059 BPM Atrial Rate : 059 BPM P-R Int : 132 ms QRS Dur : 074 ms QT Int : 410 ms P-R-T Axes : 032 -29 -12 degrees QTc Int : 405 ms Poor data quality, interpretation may be adversely affected Sinus bradycardia Cannot rule out Old Inferior infarct Abnormal ECG When compared with ECG of 17-FEB-2023 09:58, Borderline Criteria for Inferior infarct is now Present Confirmed by Duke Arthur ([id number]) on 02/20/2023 4:14:43 PM Referred By: REFERRED SELF Confirmed By:Duke Arthur
== END 2023-02-19 17:38 | disposition home or self-care (01) | DRG 322 ==
LOC: ED 08:14 → 1E 09:30 → OR 09:30 → 1E 10:08 → SUATTDRO 10:08
PROC: CLB.CCO (2023-02-17 09:00)